=== PATIENT | female | born 1965 | race Two or more races ===

== ENCOUNTER → 2024-07-08 | Outpatient (CLI) | payer MEDICAID, SELFPAY ==
--- NOTE | 2024-07-08 13:33 | XR_ITS ---
Examination: PA lateral chest 2 views Technique: Upright PA lateral chest 2 views Exam date and time: July 08, 2024 1344 hrs. Indications: Coughing congestion this week. Findings: Subsegmental atelectasis left base Right internal jugular Port-A-Cath tip satisfactory position Left axillary surgical clips No lobar pneumonia or pulmonary edema Impression: No lobar pneumonia or pulmonary edema
== END | disposition home or self-care (01) ==
PROVIDERS: PCP Family Medicine; Referring Provider Internal Medicine Hematology & Oncology; Visit Provider Internal Medicine Hematology & Oncology
DX: R05.9 Cough, unspecified (principal); C50.112 Malignant neoplasm of central portion of left female breast
CPT/HCPCS: 71046

== ENCOUNTER 2024-07-15 08:55 | Outpatient (RCR) | payer MEDICAID, SELFPAY ==
--- NOTE | 2024-06-24 06:16 | CTCFLWUP_ITS ---
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 Axillary LN biopsy negative Sclerotic lesion involving the right lateral facet of C2 vertebral body. Right ear pain of unclear etiology Type 2 diabetes REASON FOR TODAY?S VISIT: This is office follow-up visit. Ms. Esteves is here at [facility] ([facility]. She had lumpectomy and sentinel lymph node biopsy done on 02/21/2024. She was found to have stage IIa triple negative invasive ductal carcinoma as documented below. She was to start chemotherapy but she unfortunately complained of right axillary lymph node swelling which wa s biopsied and is negative now. She has recovered very well from the surgery. Denies any pain in th e left breast or left axilla. Denies any cough, chest pain, abdominal pain or leg cramps. Ambulatin g well without any help. Has good appetite and good energy levels. HISTORY OF PRESENT ILLNESS: Marlyn Esteves is a 58-year-old SPA speaking female with histor y of diabetes has been having neck pain with radiation to the right upper extremity for last 1 year. She has the following work-up done so far. Ms. Esteves is referred to medical oncology to rule out malignancy. 09/28/2022: CT scan of the spine cervical spine without contrast 11/28/2022: MRI of the cervical spine with and without contrast 01/18/2023: Bilateral screening mammogram done at [facility] 03/22/2023:Bone scan 05/30/2023: CT scan of the chest abdomen and pelvis with IV contrast 07/03/2023: Bilateral screening mammograms 08/16/2023: PET/CT scan 08/22/2023: Bilateral breast ultrasound 10/16/2023: Stereotactic guided vacuum-assisted left breast biopsy with clip placement? 11/06/2023: [employer] Hereditary cancer panel negative for BRCA 1and2 mutations 11/13/2023: Echocardiogram?LVEF 60-65%. 02/21/2024: Ms. Esteves had left breast lumpectomy and sentinel lymph node biopsy PAST MEDICAL HISTORY: Diabetes Hyperlidiemia PAST SURGICAL HISTORY: Tubal?ligation-1995 ?- MEDICATIONS: 1. cyclobenzaprine - 10 mg 1 tab Three times a day 2. gabapentin - 100 mg 1 Capsule Three times a day 3. meloxicam - 15 mg 1 tab Daily 4. simvastatin - 20 mg 1 tab Daily 5. traMADol - 50 mg 1 tab Twice a Day?Palabra Meds? Medications Last Reconciled by Etelvina Braxton MA on 03/26/2024 ALLERGIES: No Known Drug Allergies REVIEW OF SYSTEMS:?Clone ROS? Neurological: No headache, seizures or blurring of vision. Gastrointestinal: No nausea, vomiting, diarrhea or constipation. Cardiovascular: No palpitations or angina pains. Respiratory: No cough, chest pain or shortness of breath. PHYSICAL EXAMINATION:?ClonePE? VITAL SIGNS: EYE: Conjunctivae is pink. MOUTH: Oral cavity is dry. No tenderness present in the cervical spine. Biopsy site on the left breast looks good. No signs of infection. CHEST: Clear to auscultation. No wheezes or rales audible. CARDIAC: Rhythm regular, no murmurs or gallops present. ABDOMEN: Soft. No hepatomegaly. No splenomegaly. EXTREMITIES: No pedal edema or cyanosis. ASSESSMENT: 1. Stage IIa (pT2, snN 0, M0)moderately differentiated invasive ductal carcinoma of the left breast w ith lymphovascular invasion, Ki-67 75%. S/p lumpectomy and sentinel lymph node biopsy on 02/21/2020 2. Left axillary lymph node biopsy is negative so the patient remains stage II and not a candidate fo r keynote chemotherapy combination 3. clinical stage Ia (cT1c, N0, M0) triple negative invasive ductal carcinoma, moderately differentia [place] of left breast, status post left breast stereotactic core biopsy (10/16/2023) 4. BRCA 1and2 negative 5. PET/CT scan negative for metastatic disease (08/16/2019. 6. Sclerotic lesion involving the right lateral facet of C2 vertebral body. 7. Type 2 diabetesDense sclerotic lesion involving the right lateral facet of the C2 vertebral body w hich was causing neck pain as well as radiation to the right upper extremity. Rule out metastatic di sease. PLAN: 1. In view of the stage IIa nature of her triple negative breast cancer I have recommended adjuvant c hemotherapy. Patient is agreeable to have the chemotherapy to decrease the chance of recurrence. 2. I will start her on dose dense AC for 4 cycles followed by weekly paclitaxel for 12 weeks. 3. Chemo-Port already completed 4. Echocardiogram reviewed. 5. Patient will start chemotherapy tomorrow Electronically Signed by Dr. Samaniego CC: PCP: Boogie Douglas Referring: Boogie Douglas This document was completed utilizing speech recognition software. Grammatical errors, random word in sertions, pronoun errors, and incomplete sentences are an occasional consequence of this system due t o software limitations, ambient noise, and hardware issues. Any formal questions or concerns about e content, text or information contained within the body of this dictation should be directly address ed to the provider for clarification.
[2024-06-24 08:39] LABS: Basophils % (Auto) 0 % (0-2.5); Eosinophils # (Auto) 0.1 Thou/mm3 (0.0-0.5); Eosinophils % (Auto) 2 % (0-10); Hematocrit 35.3 % (36.0-46.0); Hemoglobin 11.9 g/dL (12.0-16.0); Immature Granulocytes % (Auto) 0 % (0-0); Immature Granulocytes Auto 0.02 Thou/mm3 (0.00-0.00); Lymphocytes # (Auto) 1.6 Thou/mm3 (1.0-4.8); Lymphocytes % (Auto) 26 % (10-50); Mean Corpuscular HGB Conc 33.7 g/dl (31.0-37.0); Mean Corpuscular Hemoglobin 29.8 pg (25.0-35.0); Mean Corpuscular Volume 89 fL (80-100); Monocytes # (Auto) 0.4 Thou/mm3 (0.0-0.8); Monocytes % (Auto) 7 % (0-12); Neutrophils # (Auto) 3.9 Thou/mm3 (1.8-7.7); Neutrophils % (Auto) 65 % (37-80); Nucleated Red Blood Cell % 0 /100 WBC (0); Platelet Count 206 Thou/mm3 (140-440); RDW Standard Deviation 42.7 fL (36.4-46.3); Red Blood Count 3.99 Miln/mm3 (4.00-5.20); White Blood Count 6.1 Thou/mm3 (3.6-11.0)
[2024-06-24 08:47] LABS: Alanine Aminotransferase 24 U/L (10-49); Albumin, Serum 4.5 gm/dL (3.5-5.0); Albumin/Globulin Ratio 1.7 (1.2-2.2); Alkaline Phosphatase 110 U/L (46-116); Anion Gap 9 (7-16); Aspartate Amino Transferase 20 U/L (0-34); BUN/Creatinine Ratio 22 Ratio (12-20); Bilirubin,Total 0.3 mg/dL (0.3-1.2); Blood Urea Nitrogen 11 mg/dL (9-23); Calcium 9.6 mg/dL (8.3-10.6); Calcium (Corrected) 9.6 mg/dL (8.5-10.1); Carbon Dioxide 25.6 mMol/L (20.0-31.0); Chloride 107 mMol/L (98-107); Creatinine (Component) 0.5 mg/dL (0.6-1.3); Globulin 2.7 gm/dL (2.3-3.5); Glucose 136 mg/dL (74-106); Osmolality,Calculated 284 (275-295); Potassium 3.6 mMol/L (3.4-5.1); Sodium 142 mMol/L (136-145); Total Protein 7.2 gm/dL (5.7-8.2); eGFR > 60 See Note
[2024-07-11 11:22] LABS: Basophils # (Auto) 0.1 Thou/mm3 (0.0-0.2); Basophils % (Auto) 1 % (0-2.5); Eosinophils # (Auto) 0.1 Thou/mm3 (0.0-0.5); Eosinophils % (Auto) 1 % (0-10); Hematocrit 32.9 % (36.0-46.0); Hemoglobin 11.1 g/dL (12.0-16.0); Immature Granulocytes % (Auto) 7 % (0-0); Immature Granulocytes Auto 0.63 Thou/mm3 (0.00-0.00); Lymphocytes # (Auto) 1.6 Thou/mm3 (1.0-4.8); Lymphocytes % (Auto) 17 % (10-50); Mean Corpuscular HGB Conc 33.7 g/dl (31.0-37.0); Mean Corpuscular Hemoglobin 30.2 pg (25.0-35.0); Mean Corpuscular Volume 90 fL (80-100); Monocytes % (Auto) 10 % (0-12); Neutrophils # (Auto) 6.3 Thou/mm3 (1.8-7.7); Neutrophils % (Auto) 66 % (37-80); Nucleated Red Blood Cell % 0 /100 WBC (0); Platelet Count 312 Thou/mm3 (140-440); RDW Standard Deviation 43.5 fL (36.4-46.3); Red Blood Count 3.67 Miln/mm3 (4.00-5.20); White Blood Count 9.7 Thou/mm3 (3.6-11.0)
[2024-07-11 11:47] LABS: Alanine Aminotransferase 22 U/L (10-49); Albumin, Serum 4.8 gm/dL (3.5-5.0); Albumin/Globulin Ratio 1.9 (1.2-2.2); Alkaline Phosphatase 112 U/L (46-116); Anion Gap 9 (7-16); Aspartate Amino Transferase 19 U/L (0-34); BUN/Creatinine Ratio 13 Ratio (12-20); Bilirubin,Total 0.2 mg/dL (0.3-1.2); Blood Urea Nitrogen 8 mg/dL (9-23); Calcium 9.5 mg/dL (8.3-10.6); Calcium (Corrected) 9.5 mg/dL (8.5-10.1); Carbon Dioxide 25.8 mMol/L (20.0-31.0); Chloride 107 mMol/L (98-107); Creatinine (Component) 0.6 mg/dL (0.6-1.3); Globulin 2.5 gm/dL (2.3-3.5); Glucose 105 mg/dL (74-106); Osmolality,Calculated 281 (275-295); Potassium 3.6 mMol/L (3.4-5.1); Sodium 142 mMol/L (136-145); Total Protein 7.3 gm/dL (5.7-8.2); eGFR > 60 See Note
[2024-07-11 17:15] LABS: Band Neutrophils (Manual) 5 % (0-6); Lymphocytes (Manual) 25 % (20-44); Monocytes (Manual) 5 % (2-9); Neutrophils (Manual) 65 % (50-70)
--- NOTE | 2024-07-13 00:37 | CTCFLWUP_ITS ---
Patient: MARLYN ESTEVES : 1965 Page 6 of 8 FOLLOW UP NOTE DATE OF SERVICE: 07/08/2024 NAME: MARLYN ESTEVES ACCOUNT: [id number] : 1965 AGE: 58 INTERVAL HISTORY: Patient is complaining of bilateral ear stuffiness. She says she have hearing aids which are not wor ember. She also had URI and also making her ear feel more stuffy and her hearing has decreased ONCOLOGY HISTORY: DIAGNOSIS: Malignant neoplasm of central portion of left female breast [ICD10] C50.112 DATE OF DIAGNOSIS: 10/16/2023 triple negative breast cancer STAGE/TNM: Stage IIa left breast triple negative breast S/p lumpectomy TREATMENT HISTORY: Care?Plan Start?Date Cycle Day Intent AC?4?cy?DD?Taxol?wkly?12?wks 03/26/2024 1 7 Curative?(adjuvant) AC?4?cy?DD?Taxol?wkly?12?wks 04/02/2024 2 7 Curative?(adjuvant) HISTORY OF PRESENT ILLNESS: Marlyn Esteves is a 58-year-old S[place] speaking female with history of diabetes has been havin g neck pain with radiation to the right upper extremity for last 1 year. She has the following work- up done so far. Ms. Esteves is referred to medical oncology to rule out malignancy. 09/28/2022: CT scan of the spine cervical spine without contrast 11/28/2022: MRI of the cervical spine with and without contrast 01/18/2023: Bilateral screening mammogram done at [facility] 03/22/2023:Bone scan 05/30/2023: CT scan of the chest abdomen and pelvis with IV contrast 07/03/2023: Bilateral screening mammograms 08/16/2023: PET/CT scan 08/22/2023: Bilateral breast ultrasound 10/16/2023: Stereotactic guided vacuum-assisted left breast biopsy with clip placement? 11/06/2023: [employer] Hereditary cancer panel negative for BRCA 1and2 mutations 11/13/2023: Echocardiogram?LVEF 60-65%. 02/21/2024: Ms. Esteves had left breast lumpectomy and sentinel lymph node biopsy OTHER MEDICAL HISTORY/CONDITIONS: Diabetes Hyperlidiemia Tubal?ligation-1995 ?- FAMILY HISTORY: Patient?denies?family?cancer?history. SOCIAL HISTORY: Occupational?History:?Unemployed?- Education?Level:?Completed something less than 8th grade Marital?Status:? Tobacco?Use:?Denies ETOH?Use:?Denies Drug?Note:?Denues Social?History?Note:?Lives?alone [employer] HISTORY: Menarche?-?Age:?10 Menopause:?Age?51 :?4 Live?Births:?5 Age?1st?:?16 Gynecological?Note:?!?set?of?twins MEDICATIONS: 1. cyclobenzaprine - 10 mg 1 tab Three times a day 2. gabapentin - 100 mg 1 Capsule Three times a day 3. meloxicam - 15 mg 1 tab Daily 4. simvastatin - 20 mg 1 tab Daily 5. traMADol - 50 mg 1 tab Twice a Day 6. Zithromax Z-Sarath - 250 mg 1 - 2 tab 2 tabs day one then one daily over 5 days Medications Last Reconciled by Etelvina Braxton MA on 07/08/2024 ALLERGIES: No Known Drug Allergies REVIEW OF SYSTEMS: A complete 14-point review of systems was performed and is negative except as noted in interval histo ry. PHYSICAL EXAMINATION: VITAL SIGNS: Temperature?98.2, B/P?135/90, Oxygen?Saturation?97% Weight?123?lbs (Change?since? 4:?-7.6?lbs) PAIN: 0 - No pain ECOG Performance Status: 0 - Asymptomatic and fully active EYE: Conjunctivae is white MOUTH: Oral cavity is moist no tenderness present in the cervical spine. Biopsy site on the left breast looks good. No signs of infection. CHEST: Clear to auscultation. No wheezes or rales audible. CARDIAC: Rhythm regular, no murmurs or gallops present. ABDOMEN: Soft. No hepatomegaly. No splenomegaly. EXTREMITIES: No pedal edema or cyanosis. LABORATORY DATA: I have personally reviewed and interpreted each of the patient?s relevant lab tests, abnormal finding s are below: Date 07/11/24 ??GLUCOSE,RANDOM?(mg/dL) 105 ??BLOOD?UREA?NITROGEN?(mg/dL) 8?L ??CREATININE?(mg/dL) 0.60 ??SODIUM?(mmol/L) 142 ??POTASSIUM?(mmol/L) 3.6 ??CHLORIDE?(mmol/L) 107 ??CrCl?(CandG)?(ml/min) 89.93 ??AST/SGOT?(Unit/L) 19 ??ALT/SGPT?(Unit/L) 22 ??ALKALINE?PHOSPHATASE?(Unit/L) 112 ??BILIRUBIN,?TOTAL?(mg/dL) 0.2?L ??PROTEIN?TOTAL?(gm/dl) 7.3 ??ALBUMIN,?SERUM?(gm/dl) 4.8 ??GLOBULIN?(gm/dl) 2.5 ??ALBUMIN/GLOBULIN?RATIO 1.9 ??CALCIUM,?SERUM?(mg/dL) 9.5 ??CALCIUM?SERUM?(CORRECTED)?(mg/dL) 9.5 ASSESSMENT/PLAN: 1. Stage IIa (pT2, snN 0, M0)moderately differentiated invasive ductal carcinoma of the left breast w ith lymphovascular invasion, Ki-67 75%. S/p lumpectomy and sentinel lymph node biopsy on 02/21/2020 Patient was initially diagnosed in October 2023 but got her surgery done in 03/04/2024 and did not recei ve neoadjuvant chemotherapy Patient was seen by me in April 2020 for and at that time patient complained of palpable left axill shabnam lymph node. Patient was sent for left axillary lymph node biopsy. Left axillary lymph node biop sy is negative so Ms. Esteves remains stage II and chemotherapy was started. Initially,clinica l stage Ia (cT1c, N0, M0) triple negative invasive ductal carcinoma, moderately differentiated of lef t breast, status post left breast stereotactic core biopsy (10/16/2023) BRCA 1and2 negative PET/CT scan negative for metastatic disease (08/16/2023. Started on chemotherapy with AC followed by paclitaxel Tolerating chemotherapy but patient have frequent delays Continue chemotherapy Will get x-rays just to make sure patient do not have any pneumonia and send to audiometry for hearin g test Will try to avoid any delays until absolutely necessary 2. sclerotic lesion involving the right lateral facet of C2 vertebral body. This is not biopsied. 3. Type 2 diabetes 4. Dense sclerotic lesion involving the right lateral facet of the C2 vertebral body and follows with orthopedic surgeon in [facility] CMP hearing test RETURN TO CLINIC: 4 weeks BILLING AND COMPLIANCE: I reviewed external records from providers outside my specialty as summarized above. I spent a total of 50 minutes on this patient?s care on the day of their visit excluding time spent related to any bi lled procedures. This time includes time spent with the patient as well as time spent documenting in the medical record, reviewing patients records and tests, obtaining history, placing orders, communi cating with other healthcare professionals, counseling the patient, family or caregiver, and/or care coordination for the diagnoses above. Electronically Signed by: Danny Jones MD T: 12:35 AM CC: PCP: Boogie Douglas Referring: Boogie Douglas This document was completed utilizing speech recognition software. Grammatical errors, random word in sertions, pronoun errors, and incomplete sentences are an occasional consequence of this system due t o software limitations, ambient noise, and hardware issues. Any formal questions or concerns about th e content, text or information contained within the body of this dictation should be directly address ed to the provider for clarification.
== END 2024-07-15 23:59 | disposition home or self-care (01) ==
LOC: SCTC 08:55
PROVIDERS: PCP Family Medicine; Referring Provider Family Medicine; Visit Provider Internal Medicine Hematology & Oncology
DX: Z51.11 Encounter for antineoplastic chemotherapy (principal); C50.112 Malignant neoplasm of central portion of left female breast; Z17.421 Hormone receptor negative with human epidermal growth factor receptor 2 negative status; Z90.12 Acquired absence of left breast and nipple; M89.8X8 Other specified disorders of bone, other site; E11.9 Type 2 diabetes mellitus without complications
CPT/HCPCS: 36591; 80053; 85025; 96367; 96372; 96411; 96413; 99213; 99424; 99425; A4216; J1100; J1453; J1642; J2405; J2506; J3490; J7040; J9000; J9075; Q3014; G0463

== ENCOUNTER → 2024-07-15 | Outpatient (CLI) | payer MEDICAID, SELFPAY ==
--- NOTE | 2024-07-15 13:30 | ECHO_ITS ---
Transthoracic Echo Report Ht (in): 58 Wt (lb): 125 Exam Location: Echo Lab Status: Preadmit Independent Distributor: Monserrat Gee Indications: Procedure Performed: BP: / HR: Rhythm: Sinus Technical Quality: Fair MEASUREMENTS (Male / Female) Normal Values 2D ECHO LV Diastolic Diameter PLAX 4.1 cm 4.2 - 5.9 / 3.9 - 5.3 cm LV Systolic Diameter PLAX 2.7 cm IVS Diastolic Thickness 0.7 cm 0.6 - 1.0 / 0.6 - 0.9 cm LVPW Diastolic Thickness 0.7 cm 0.6 - 1.0 / 0.6 - 0.9 cm LV Relative Wall Thickness 0.3 LVOT Diameter 1.6 cm LA Volume Index 18.4 cm?/m? 16 - 28 cm?/m? Ascending Aorta Diameter 2.7 cm M-MODE Aortic Root Diameter MM 2.8 cm LA Systolic Diameter MM 3.5 cm LA Ao Ratio MM 1.3 AV Cusp Separation MM 2.0 cm DOPPLER AV Peak Velocity 141.0 cm/s AV Peak Gradient 8.0 mmHg AV Mean Gradient 4.0 mmHg AV Velocity Time Integral 23.3 cm LVOT Peak Velocity 134.0 cm/s LVOT Peak Gradient 7.2 mmHg LVOT Velocity Time Integral 25.5 cm AV Area Cont Eq vti 2.2 cm? AV Area Cont Eq pk 1.9 cm? MV Peak Velocity 135.0 cm/s MV Peak Gradient 7.3 mmHg MV Mean Velocity 74.0 cm/s MV Mean Gradient 3.0 mmHg MV Area PHT 4.3 cm? Mitral E Point Velocity 69.8 cm/s Mitral A Point Velocity 101.0 cm/s Mitral E to A Ratio 0.7 LV E' Lateral Velocity 8.5 cm/s Mitral E to LV E' Lateral Ratio 8.2 LV E' Septal Velocity 9.0 cm/s Mitral E to LV E' Septal Ratio 7.7 TR Peak Velocity 220.0 cm/s TR Peak Gradient 19.4 mmHg FINDINGS Left Ventricle Normal left ventricular size, wall thickness, systolic function with no obvious regional wall motion abnormalities. The ejection fraction is visually estimated at 60-65 %. Right Ventricle The right ventricle is normal in size and systolic function. The estimated right ventricular systoli c pressure, 24mmHg. RAP 5. Left Atrium The left atrium is normal by two-dimensional, color flow and Doppler imaging with no structural abnormalities, no thrombus formation present. Right Atrium The right atrium is normal by two-dimensional imaging, color flow and Doppler imaging with no struct ural abnormalities, no thrombus formation present. Atrial Septum The interatrial septum appears normal with no evidence of a shunt. Aorta The aorta is normal by two-dimensional, color flow and Doppler interrogation. Mitral Valve The mitral valve is normal by two-dimensional, color flow and Doppler interrogation. There is no sig nificant mitral valve regurgitation. Aortic Valve The aortic valve is trileaflet and normal by two-dimensional, color flow and Doppler interrogation. There is no significant aortic valve regurgitation. Tricuspid Valve The tricuspid valve is normal by two-dimensional, color flow and Doppler interrogation. There is tra ce tricuspid valve regurgitation. Pulmonic Valve There is no significant pulmonic valve regurgitation. Vessels The pulmonary artery appears normal. The inferior vena cava pulmonary and hepatic veins appear genna l. Pericardium The pericardium is normal by two-dimensional imaging. There is no significant pericardial effusion. CONCLUSIONS The transthoracic study is normal by two-dimensional, color flow imaging and Doppler interrogation. Normal LV size and function. Estimated EF 60-65% Normal RV size and function Trace TR. Maria R Kaminski (Electronically Signed) Final Date: 15 July 2024 16:02
== END | disposition home or self-care (01) ==
LOC: SDIM 13:22
PROVIDERS: PCP Family Medicine; Referring Provider Internal Medicine Hematology & Oncology; Visit Provider Internal Medicine Hematology & Oncology
DX: I07.1 Rheumatic tricuspid insufficiency (principal)
CPT/HCPCS: 93306

== ENCOUNTER 2024-08-12 13:50 | Outpatient (RCR) | payer MEDICAID, SELFPAY ==
[2024-07-25 10:28] LABS: Basophils # (Auto) 0.1 Thou/mm3 (0.0-0.2); Basophils % (Auto) 1 % (0-2.5); Eosinophils % (Auto) 1 % (0-10); Hematocrit 26.9 % (36.0-46.0); Hemoglobin 9.2 g/dL (12.0-16.0); Immature Granulocytes % (Auto) 9 % (0-0); Immature Granulocytes Auto 0.41 Thou/mm3 (0.00-0.00); Lymphocytes % (Auto) 22 % (10-50); Mean Corpuscular HGB Conc 34.2 g/dl (31.0-37.0); Mean Corpuscular Hemoglobin 29.6 pg (25.0-35.0); Mean Corpuscular Volume 87 fL (80-100); Monocytes # (Auto) 0.6 Thou/mm3 (0.0-0.8); Monocytes % (Auto) 14 % (0-12); Neutrophils # (Auto) 2.4 Thou/mm3 (1.8-7.7); Neutrophils % (Auto) 52 % (37-80); Nucleated Red Blood Cell % 0 /100 WBC (0); Platelet Count 123 Thou/mm3 (140-440); RDW Standard Deviation 42.3 fL (36.4-46.3); Red Blood Count 3.11 Miln/mm3 (4.00-5.20); White Blood Count 4.5 Thou/mm3 (3.6-11.0)
[2024-07-25 10:54] LABS: Alanine Aminotransferase 22 U/L (10-49); Albumin, Serum 4.5 gm/dL (3.5-5.0); Albumin/Globulin Ratio 1.9 (1.2-2.2); Alkaline Phosphatase 89 U/L (46-116); Anion Gap 10 (7-16); Aspartate Amino Transferase 23 U/L (0-34); BUN/Creatinine Ratio 12 Ratio (12-20); Bilirubin,Total 0.2 mg/dL (0.3-1.2); Blood Urea Nitrogen 6 mg/dL (9-23); Calcium 9.2 mg/dL (8.3-10.6); Calcium (Corrected) 9.2 mg/dL (8.5-10.1); Carbon Dioxide 26.8 mMol/L (20.0-31.0); Chloride 102 mMol/L (98-107); Creatinine (Component) 0.5 mg/dL (0.6-1.3); Globulin 2.4 gm/dL (2.3-3.5); Glucose 126 mg/dL (74-106); Osmolality,Calculated 277 (275-295); Potassium 3.5 mMol/L (3.4-5.1); Sodium 139 mMol/L (136-145); Total Protein 6.9 gm/dL (5.7-8.2); eGFR > 60 See Note
[2024-07-25 11:03] LABS: CA 15-3 17.4 U/mL (<32.4)
[2024-07-25 15:27] LABS: Path Review Blood Smear Sent to Pathologist
[2024-08-08 11:56] LABS: Basophils % (Auto) 0 % (0-2.5); Eosinophils % (Auto) 0 % (0-10); Hematocrit 27.8 % (36.0-46.0); Hemoglobin 9.2 g/dL (12.0-16.0); Immature Granulocytes % (Auto) 21 % (0-0); Immature Granulocytes Auto 1.71 Thou/mm3 (0.00-0.00); Lymphocytes # (Auto) 0.9 Thou/mm3 (1.0-4.8); Lymphocytes % (Auto) 12 % (10-50); Mean Corpuscular HGB Conc 33.1 g/dl (31.0-37.0); Mean Corpuscular Hemoglobin 30.4 pg (25.0-35.0); Mean Corpuscular Volume 92 fL (80-100); Monocytes % (Auto) 12 % (0-12); Neutrophils # (Auto) 4.4 Thou/mm3 (1.8-7.7); Neutrophils % (Auto) 54 % (37-80); Nucleated Red Blood Cell # 0.08 Thou/mm3 (0.00-0.00); Nucleated Red Blood Cell % 1 /100 WBC (0); Platelet Count 148 Thou/mm3 (140-440); RDW Standard Deviation 50.2 fL (36.4-46.3); Red Blood Count 3.03 Miln/mm3 (4.00-5.20); White Blood Count 8.1 Thou/mm3 (3.6-11.0)
[2024-08-08 12:14] LABS: Alanine Aminotransferase 14 U/L (10-49); Albumin, Serum 4.6 gm/dL (3.4-4.8); Albumin/Globulin Ratio 2.2 (1.2-2.2); Alkaline Phosphatase 106 U/L (46-116); Anion Gap 11 (7-16); Aspartate Amino Transferase 15 U/L (0-34); BUN/Creatinine Ratio 14 Ratio (12-20); Bilirubin,Total 0.2 mg/dL (0.3-1.2); Blood Urea Nitrogen 7 mg/dL (9-23); Calcium 9.1 mg/dL (8.3-10.6); Calcium (Corrected) 9.1 mg/dL (8.5-10.1); Carbon Dioxide 26.2 mMol/L (20.0-31.0); Chloride 106 mMol/L (98-107); Creatinine (Component) 0.5 mg/dL (0.6-1.3); Globulin 2.1 gm/dL (2.3-3.5); Glucose 142 mg/dL (74-106); Osmolality,Calculated 284 (275-295); Potassium 3.3 mMol/L (3.4-5.1); Sodium 143 mMol/L (136-145); Total Protein 6.7 gm/dL (5.7-8.2); eGFR > 60 See Note
[2024-08-08 12:29] LABS: CA 15-3 20.8 U/mL (<32.4)
[2024-08-08 14:39] LABS: Path Review Blood Smear Sent to Pathologist
== END 2024-08-15 23:59 | disposition home or self-care (01) ==
LOC: SCTC 13:50
PROVIDERS: Internal Medicine Hematology & Oncology; PCP Family Medicine; Referring Provider Family Medicine; Visit Provider Radiology Therapeutic Radiology
DX: Z51.11 Encounter for antineoplastic chemotherapy (principal); C50.112 Malignant neoplasm of central portion of left female breast; Z17.421 Hormone receptor negative with human epidermal growth factor receptor 2 negative status; E11.9 Type 2 diabetes mellitus without complications; Z90.12 Acquired absence of left breast and nipple; M89.9 Disorder of bone, unspecified
CPT/HCPCS: 36591; 80053; 85025; 86300; 96367; 96372; 96411; 96413; 99211; A4216; J1100; J1453; J1642; J2405; J2506; J7040; J7050; J9000; J9075; G0463

== ENCOUNTER 2024-09-12 12:33 | Outpatient (RCR) | payer MEDICAID, SELFPAY ==
[2024-08-18 10:56] LABS: Basophils % (Auto) 1 % (0-2.5); Eosinophils % (Auto) 0 % (0-10); Hematocrit 25.6 % (36.0-46.0); Immature Granulocytes % (Auto) 2 % (0-0); Immature Granulocytes Auto 0.05 Thou/mm3 (0.00-0.00); Lymphocytes # (Auto) 0.4 Thou/mm3 (1.0-4.8); Lymphocytes % (Auto) 13 % (10-50); Mean Corpuscular HGB Conc 33.2 g/dl (31.0-37.0); Mean Corpuscular Hemoglobin 30.8 pg (25.0-35.0); Mean Corpuscular Volume 93 fL (80-100); Monocytes # (Auto) 0.1 Thou/mm3 (0.0-0.8); Monocytes % (Auto) 5 % (0-12); Neutrophils # (Auto) 2.3 Thou/mm3 (1.8-7.7); Neutrophils % (Auto) 80 % (37-80); Nucleated Red Blood Cell % 0 /100 WBC (0); Platelet Count 148 Thou/mm3 (140-440); RDW Standard Deviation 58.9 fL (36.4-46.3); Red Blood Count 2.76 Miln/mm3 (4.00-5.20)
[2024-08-18 10:59] LABS: Hemoglobin 8.5 g/dL (12.0-16.0); White Blood Count 2.9 Thou/mm3 (3.6-11.0)
[2024-08-18 11:03] LABS: Path Review Blood Smear Sent to Pathologist
[2024-08-22 10:56] LABS: Basophils % (Auto) 0 % (0-2.5); Eosinophils % (Auto) 0 % (0-10); Hematocrit 27.7 % (36.0-46.0); Hemoglobin 9.2 g/dL (12.0-16.0); Immature Granulocytes % (Auto) 12 % (0-0); Lymphocytes # (Auto) 0.9 Thou/mm3 (1.0-4.8); Lymphocytes % (Auto) 12 % (10-50); Mean Corpuscular HGB Conc 33.2 g/dl (31.0-37.0); Mean Corpuscular Hemoglobin 31.4 pg (25.0-35.0); Mean Corpuscular Volume 95 fL (80-100); Monocytes % (Auto) 14 % (0-12); Neutrophils # (Auto) 4.6 Thou/mm3 (1.8-7.7); Neutrophils % (Auto) 62 % (37-80); Nucleated Red Blood Cell # 0.06 Thou/mm3 (0.00-0.00); Nucleated Red Blood Cell % 1 /100 WBC (0); Platelet Count 137 Thou/mm3 (140-440); RDW Standard Deviation 60.8 fL (36.4-46.3); Red Blood Count 2.93 Miln/mm3 (4.00-5.20); White Blood Count 7.4 Thou/mm3 (3.6-11.0)
[2024-08-22 11:18] LABS: Alanine Aminotransferase 16 U/L (10-49); Albumin, Serum 4.5 gm/dL (3.4-4.8); Alkaline Phosphatase 110 U/L (46-116); Anion Gap 10 (7-16); Aspartate Amino Transferase 11 U/L (0-34); BUN/Creatinine Ratio 12 Ratio (12-20); Bilirubin,Total 0.2 mg/dL (0.3-1.2); Blood Urea Nitrogen 7 mg/dL (9-23); Calcium 9.3 mg/dL (8.3-10.6); Calcium (Corrected) 9.3 mg/dL (8.5-10.1); Carbon Dioxide 25.3 mMol/L (20.0-31.0); Chloride 106 mMol/L (98-107); Creatinine (Component) 0.6 mg/dL (0.6-1.3); Globulin 2.2 gm/dL (2.3-3.5); Glucose 134 mg/dL (74-106); Osmolality,Calculated 281 (275-295); Potassium 3.4 mMol/L (3.4-5.1); Sodium 141 mMol/L (136-145); Total Protein 6.7 gm/dL (5.7-8.2); eGFR > 60 See Note
[2024-08-22 11:25] LABS: Path Review Blood Smear Sent to Pathologist
[2024-08-22 11:34] LABS: CA 15-3 18.5 U/mL (<32.4)
[2024-09-02 09:11] LABS: Basophils % (Auto) 1 % (0-2.5); Eosinophils % (Auto) 0 % (0-10); Hematocrit 25.6 % (36.0-46.0); Immature Granulocytes % (Auto) 2 % (0-0); Immature Granulocytes Auto 0.07 Thou/mm3 (0.00-0.00); Lymphocytes # (Auto) 0.7 Thou/mm3 (1.0-4.8); Lymphocytes % (Auto) 15 % (10-50); Mean Corpuscular Hemoglobin 32.3 pg (25.0-35.0); Mean Corpuscular Volume 95 fL (80-100); Monocytes # (Auto) 0.5 Thou/mm3 (0.0-0.8); Monocytes % (Auto) 12 % (0-12); Neutrophils # (Auto) 3.1 Thou/mm3 (1.8-7.7); Neutrophils % (Auto) 71 % (37-80); Nucleated Red Blood Cell # 0.02 Thou/mm3 (0.00-0.00); Nucleated Red Blood Cell % 0 /100 WBC (0); Platelet Count 318 Thou/mm3 (140-440); RDW Standard Deviation 67.7 fL (36.4-46.3); Red Blood Count 2.69 Miln/mm3 (4.00-5.20); White Blood Count 4.5 Thou/mm3 (3.6-11.0)
[2024-09-02 09:13] LABS: Hemoglobin 8.7 g/dL (12.0-16.0)
[2024-09-02 09:28] LABS: Alanine Aminotransferase 19 U/L (10-49); Albumin, Serum 4.1 gm/dL (3.4-4.8); Alkaline Phosphatase 77 U/L (46-116); Anion Gap 10 (7-16); Aspartate Amino Transferase 19 U/L (0-34); BUN/Creatinine Ratio 14 Ratio (12-20); Bilirubin,Total 0.2 mg/dL (0.3-1.2); Blood Urea Nitrogen 7 mg/dL (9-23); Carbon Dioxide 25.9 mMol/L (20.0-31.0); Chloride 107 mMol/L (98-107); Creatinine (Component) 0.5 mg/dL (0.6-1.3); Globulin 2.1 gm/dL (2.3-3.5); Glucose 114 mg/dL (74-106); Osmolality,Calculated 283 (275-295); Potassium 3.6 mMol/L (3.4-5.1); Sodium 143 mMol/L (136-145); Total Protein 6.2 gm/dL (5.7-8.2); eGFR > 60 See Note
[2024-09-09 10:32] LABS: Basophils % (Auto) 1 % (0-2.5); Eosinophils % (Auto) 1 % (0-10); Hematocrit 26.6 % (36.0-46.0); Immature Granulocytes % (Auto) 2 % (0-0); Immature Granulocytes Auto 0.04 Thou/mm3 (0.00-0.00); Lymphocytes # (Auto) 0.6 Thou/mm3 (1.0-4.8); Lymphocytes % (Auto) 23 % (10-50); Mean Corpuscular HGB Conc 33.8 g/dl (31.0-37.0); Mean Corpuscular Hemoglobin 31.7 pg (25.0-35.0); Mean Corpuscular Volume 94 fL (80-100); Monocytes # (Auto) 0.3 Thou/mm3 (0.0-0.8); Monocytes % (Auto) 11 % (0-12); Neutrophils # (Auto) 1.7 Thou/mm3 (1.8-7.7); Neutrophils % (Auto) 63 % (37-80); Nucleated Red Blood Cell % 0 /100 WBC (0); Platelet Count 231 Thou/mm3 (140-440); RDW Standard Deviation 63.7 fL (36.4-46.3); Red Blood Count 2.84 Miln/mm3 (4.00-5.20)
[2024-09-09 10:52] LABS: Anion Gap 9 (7-16); BUN/Creatinine Ratio 16 Ratio (12-20); Blood Urea Nitrogen 8 mg/dL (9-23); Calcium 9.1 mg/dL (8.3-10.6); Carbon Dioxide 24.8 mMol/L (20.0-31.0); Chloride 108 mMol/L (98-107); Creatinine (Component) 0.5 mg/dL (0.6-1.3); Glucose 125 mg/dL (74-106); Osmolality,Calculated 282 (275-295); Potassium 3.5 mMol/L (3.4-5.1); Sodium 142 mMol/L (136-145); eGFR > 60 See Note
[2024-09-09 11:07] LABS: CA 15-3 16.1 U/mL (<32.4)
[2024-09-09 11:08] LABS: White Blood Count 2.7 Thou/mm3 (3.6-11.0)
[2024-09-09 11:31] LABS: Alanine Aminotransferase 23 U/L (10-49); Albumin, Serum 4.2 gm/dL (3.4-4.8); Alkaline Phosphatase 73 U/L (46-116); Aspartate Amino Transferase 19 U/L (0-34); Bilirubin,Total 0.3 mg/dL (0.3-1.2); Calcium (Corrected) 9.1 mg/dL (8.5-10.1); Globulin 2.1 gm/dL (2.3-3.5); Total Protein 6.3 gm/dL (5.7-8.2)
--- NOTE | 2024-09-15 00:55 | CTCFLWUP_ITS ---
Patient: MARLYN ESTEVES : 1965 Page 6 of 8 FOLLOW UP NOTE DATE OF SERVICE: 09/12/2024 NAME: MARLYN ESTEVES ACCOUNT: [id number] : 1965 AGE: 59 INTERVAL HISTORY: Patient is complaining of new bone pain. Patient also have very severe nausea and headaches. On chemotherapy ONCOLOGY HISTORY: DIAGNOSIS: Malignant neoplasm of central portion of left female breast [ICD10] C50.112 DATE OF DIAGNOSIS: 10/16/2023 triple negative breast cancer STAGE/TNM: Stage IIa left breast triple negative breast S/p lumpectomy TREATMENT HISTORY: Care?Plan Start?Date Cycle Day Intent AC?4?cy?DD?Taxol?wkly?12?wks 03/26/2024 1 7 Curative?(adjuvant) AC?4?cy?DD?Taxol?wkly?12?wks 04/02/2024 2 7 Curative?(adjuvant) HISTORY OF PRESENT ILLNESS: Marlyn Esteves is a 59-year-old S[place] speaking female with history of diabetes has been having neck pain with radiation to the right upper extremity for last 1 year. She has the following work-up done so far. Ms. Esteves is referred to medical oncology to rule out malignancy. 09/28/2022: CT scan of the spine cervical spine without contrast 11/28/2022: MRI of the cervical spine with and without contrast 01/18/2023: Bilateral screening mammogram done at [facility] 03/22/2023:Bone scan 05/30/2023: CT scan of the chest abdomen and pelvis with IV contrast 07/03/2023: Bilateral screening mammograms 08/16/2023: PET/CT scan 08/22/2023: Bilateral breast ultrasound 10/16/2023: Stereotactic guided vacuum-assisted left breast biopsy with clip placement? 11/06/2023: [employer] Hereditary cancer panel negative for BRCA 1and2 mutations 11/13/2023: Echocardiogram?LVEF 60-65%. 02/21/2024: Ms. Esteves had left breast lumpectomy and sentinel lymph node biopsy OTHER MEDICAL HISTORY/CONDITIONS: Diabetes Hyperlidiemia Tubal?ligation-1995 ?- FAMILY HISTORY: Patient?denies?family?cancer?history. SOCIAL HISTORY: Occupational?History:?Unemployed?- Education?Level:?Completed something less than 8th grade Marital?Status:? Tobacco?Use:?Denies ETOH?Use:?Denies Drug?Note:?Denues Social?History?Note:?Lives?alone [employer] HISTORY: Menarche?-?Age:?10 Menopause:?Age?51 :?4 Live?Births:?5 Age?1st?:?16 Gynecological?Note:?!?set?of?twins MEDICATIONS: 1. acetaminophen - 500 mg 1 tab As needed 2. cyclobenzaprine - 10 mg 1 tab Three times a day 3. gabapentin - 100 mg 1 Capsule Three times a day 4. meloxicam - 15 mg 1 tab Daily 5. ondansetron - 8 mg tab As needed 6. potassium chloride - 20 mEq 1 tab Daily 7. prochlorperazine - 5 mg 1 Suppository As needed 8. simvastatin - 20 mg 1 tab Daily 9. traMADol - 50 mg 1 tab Twice a Day 10. Vitamin D3 - 2,000 unit 1 Capsule Daily 11. Zithromax Z-Sarath - 250 mg 1 - 2 tab 2 tabs day one then one daily over 5 days Medications Last Reconciled by Joyce Lozoya MD on 09/12/2024 ALLERGIES: No Known Drug Allergies REVIEW OF SYSTEMS: A complete 14-point review of systems was performed and is negative except as noted in interval history. PHYSICAL EXAMINATION: VITAL SIGNS: Temperature?98.7, B/P?111/69, Oxygen?Saturation?98% Weight?121?lbs (Change?since?09/10/24:?-1.4?lbs) PAIN: 1 - Between no and mild pain EYE: Conjunctivae is white MOUTH: Oral cavity is moist no tenderness present in the cervical spine. Biopsy site on the left breast looks good. No signs of infection. CHEST: Clear to auscultation. No wheezes or rales audible. CARDIAC: Rhythm regular, no murmurs or gallops present. ABDOMEN: Soft. No hepatomegaly. No splenomegaly. EXTREMITIES: No pedal edema or cyanosis. LABORATORY DATA: I have personally reviewed and interpreted each of the patient?s relevant lab tests, abnormal findings are below: Date 09/09/24 ??WHITE?BLOOD?COUNT?(Thou/mm3) 2.7?L ??RED?BLOOD?COUNT?(Miln/mm3) 2.84?L ??HEMOGLOBIN?(gm/dl) 9.0?L ??HEMATOCRIT?(%) 26.6?L ??PLATELET?COUNT?(Thou/mm3) 231 ??NEUTROPHILS?%,?AUTO?(%) 63 ??LYMPH?%,?AUTO?(%) 23 ??NEUTROPHILS,?AUTO?(Thou/mm3) 1.7?L ASSESSMENT/PLAN: 1. Stage IIa (pT2, snN 0, M0)moderately differentiated invasive ductal carcinoma of the left breast with lymphovascular invasion, Ki-67 75%. S/p lumpectomy and sentinel lymph node biopsy on 02/21/2020 Patient was initially diagnosed in October 2023 but got her surgery done in 03/04/2024 and did not receive neoadjuvant chemotherapy Patient was seen by me in April 2020 for and at that time patient complained of palpable left axillary lymph node. Patient was sent for left axillary lymph node biopsy. Left axillary lymph node biopsy is negative so Ms. Esteves remains stage II and chemotherapy was started. Initially,clinical stage Ia (cT1c, N0, M0) triple negative invasive ductal carcinoma, moderately differentiated of left breast, status post left breast stereotactic core biopsy (10/16/2023) BRCA 1and2 negative PET/CT scan negative for metastatic disease (08/16/2023. Started on chemotherapy with AC followed by paclitaxel Tolerating chemotherapy but patient have frequent delays Continue chemotherapy 2. Advised to take nausea medicine regularly 3. sclerotic lesion involving the right lateral facet of C2 vertebral body. This is not biopsied. 4. Type 2 diabetes 5. Dense sclerotic lesion involving the right lateral facet of the C2 vertebral body and follows with orthopedic surgeon in [place] As patient have new symptoms we will do restaging imaging and brain MRI to make sure there is no metastatic disease Will continue chemotherapy Nausea education done MRI brain with and without contrast to evaluate for brain mets CT DNA for residual disease CBC CMP PET CT scan to restage RETURN TO CLINIC: 4 weeks BILLING AND COMPLIANCE: I reviewed external records from providers outside my specialty as summarized above. I spent a total of 50 minutes on this patient?s care on the day of their visit excluding time spent related to any billed procedures. This time includes time spent with the patient as well as time spent documenting in the medical record, reviewing patients records and tests, obtaining history, placing orders, communicating with other healthcare professionals, counseling the patient, family or caregiver, and/or care coordination for the diagnoses above. Electronically Signed by: Danny Jones MD T: 12:52 AM CC: PCP: Boogie Douglas Referring: Boogie Douglas This document was completed utilizing speech recognition software. Grammatical errors, random word insertions, pronoun errors, and incomplete sentences are an occasional consequence of this system due to software limitations, ambient noise, and hardware issues. Any formal questions or concerns about the content, text or information contained within the body of this dictation should be directly addressed to the provider for clarification.
== END 2024-09-12 23:59 | disposition home or self-care (01) ==
LOC: SCTC 12:33
PROVIDERS: PCP Family Medicine; Referring Provider Family Medicine; Visit Provider Internal Medicine Hematology & Oncology
DX: Z51.11 Encounter for antineoplastic chemotherapy (principal); C50.112 Malignant neoplasm of central portion of left female breast; Z17.421 Hormone receptor negative with human epidermal growth factor receptor 2 negative status; E11.9 Type 2 diabetes mellitus without complications; R11.0 Nausea; R51.9 Headache, unspecified; M89.8X9 Other specified disorders of bone, unspecified site
CPT/HCPCS: 36591; 80053; 85025; 86300; 96367; 96375; 96413; 96415; 99211; 99212; A4216; J1100; J1200; J1453; J1642; J2405; J3490; J7040; J7050; J9267; G0463

== ENCOUNTER → 2024-09-23 | Outpatient (CLI) | payer MEDICAID, SELFPAY ==
--- NOTE | 2024-09-23 14:00 | ECHO_ITS ---
Transthoracic Echo Report Ht (in): 56 Wt (lb): 122 Exam Location: Echo Lab Status: Preadmit Forest Resource Specialist: WALT Robertson^^^^ Indications: Procedure Performed: BP: 122 / 77 HR: 102 Technical Quality: Fair MEASUREMENTS (Male / Female) Normal Values 2D ECHO LV Diastolic Diameter PLAX 4.3 cm 4.2 - 5.9 / 3.9 - 5.3 cm LV Systolic Diameter PLAX 2.9 cm IVS Diastolic Thickness 0.6 cm 0.6 - 1.0 / 0.6 - 0.9 cm LVPW Diastolic Thickness 0.7 cm 0.6 - 1.0 / 0.6 - 0.9 cm LV Relative Wall Thickness 0.3 LVOT Diameter 1.3 cm Aortic Root Diameter 2.5 cm LA Systolic Diameter LX 2.5 cm 3.0 - 4.0 / 2.7 - 3.8 cm LV Ejection Fraction MOD BP 63.4 % >= 55 % LV Cardiac Index MOD BP 2762.5 cm?/min?m? LV Ejection Fraction MOD 4C 65.1 % LV Cardiac Index MOD 4C 3497.3 cm?/min?m? LV Ejection Fraction 4C AL 66.3 % LV Cardiac Index 4C AL 3680.3 cm?/min?m? LV Ejection Fraction MOD 2C 61.5 % LV Cardiac Index MOD 2C 1782.7 cm?/min?m? LV Ejection Fraction 2C AL 62.4 % LV Cardiac Index 2C AL 1816.0 cm?/min?m? LA Volume Index 15.7 cm?/m? 16 - 28 cm?/m? Ascending Aorta Diameter 2.4 cm DOPPLER AV Peak Velocity 106.0 cm/s AV Peak Gradient 4.5 mmHg AV Mean Gradient 3.0 mmHg AV Velocity Time Integral 17.0 cm LVOT Peak Velocity 83.5 cm/s LVOT Peak Gradient 2.8 mmHg LVOT Velocity Time Integral 13.2 cm LVOT Cardiac Index 1192.1 cm?/min?m? AV Area Cont Eq vti 1.0 cm? AV Area Cont Eq pk 1.0 cm? MV Area PHT 3.1 cm? Mitral E Point Velocity 42.1 cm/s Mitral A Point Velocity 69.4 cm/s Mitral E to A Ratio 0.6 LV E' Lateral Velocity 5.7 cm/s Mitral E to LV E' Lateral Ratio 7.4 LV E' Septal Velocity 6.2 cm/s Mitral E to LV E' Septal Ratio 6.8 TR Peak Velocity 238.5 cm/s TR Peak Gradient 22.8 mmHg PV Peak Velocity 87.9 cm/s PV Peak Gradient 3.1 mmHg RVOT Peak Velocity 50.2 cm/s FINDINGS Left Ventricle Normal left ventricular size, wall thickness, systolic function with no obvious regional wall motion abnormalities. There is grade I diastolic dysfunction of the left ventricle (impaired relaxation pattern). The left ventricular ejection fraction is normal, estimated at 55-60%. Right Ventricle The right ventricle is normal in size and systolic function. The estimated right ventricular systolic pressure, 23 mmHg. Left Atrium The left atrium is normal by two-dimensional, color flow and Doppler imaging with no structural abnormalities, no thrombus formation present. Right Atrium The right atrium is normal by two-dimensional imaging, color flow and Doppler imaging with no structural abnormalities, no thrombus formation present. Atrial Septum The interatrial septum appears normal with no evidence of a shunt. Aorta The aorta is normal by two-dimensional, color flow and Doppler interrogation. Mitral Valve Trace to mild mitral regurgitation. Mild mitral annular calcification. Aortic Valve The aortic valve is trileaflet and normal by two-dimensional, color flow and Doppler interrogation. There is no significant aortic valve regurgitation. Tricuspid Valve There is mild tricuspid valve regurgitation. Pulmonic Valve The pulmonic valve is not well visualized. There is no significant pulmonic valve regurgitation. Vessels The pulmonary artery appears normal. The inferior vena cava pulmonary and hepatic veins appear normal. Pericardium The pericardium is normal by two-dimensional imaging. There is no significant pericardial effusion. CONCLUSIONS Indication: History of malignancy Normal LV size and function with an EF of 55 to 60%. Indeterminate diastolic function. Normal RV size and function. Normal RVSP at 23 mmHg. Mild TR Trace MR. No evidence of any pericardial effusion. Paul Pollard (Electronically Signed) Final Date: 24 September 2024 00:34
== END | disposition home or self-care (01) ==
LOC: SDIM 13:50
PROVIDERS: PCP Family Medicine; Referring Provider Internal Medicine Hematology & Oncology; Visit Provider Internal Medicine Hematology & Oncology
DX: I08.1 Rheumatic disorders of both mitral and tricuspid valves (principal)
CPT/HCPCS: 93306

== ENCOUNTER 2024-10-10 09:59 | Outpatient (RCR) | payer MEDICAID, SELFPAY ==
[2024-09-17 13:54] LABS: Basophils % (Auto) 0 % (0-2.5); Eosinophils # (Auto) 0.1 Thou/mm3 (0.0-0.5); Eosinophils % (Auto) 2 % (0-10); Hematocrit 29.5 % (36.0-46.0); Hemoglobin 10.1 g/dL (12.0-16.0); Immature Granulocytes % (Auto) 1 % (0-0); Immature Granulocytes Auto 0.03 Thou/mm3 (0.00-0.00); Lymphocytes # (Auto) 0.7 Thou/mm3 (1.0-4.8); Lymphocytes % (Auto) 16 % (10-50); Mean Corpuscular HGB Conc 34.2 g/dl (31.0-37.0); Mean Corpuscular Hemoglobin 32.3 pg (25.0-35.0); Mean Corpuscular Volume 94 fL (80-100); Monocytes # (Auto) 0.4 Thou/mm3 (0.0-0.8); Monocytes % (Auto) 8 % (0-12); Neutrophils # (Auto) 3.4 Thou/mm3 (1.8-7.7); Neutrophils % (Auto) 73 % (37-80); Nucleated Red Blood Cell % 0 /100 WBC (0); Platelet Count 231 Thou/mm3 (140-440); RDW Standard Deviation 62.8 fL (36.4-46.3); Red Blood Count 3.13 Miln/mm3 (4.00-5.20); White Blood Count 4.6 Thou/mm3 (3.6-11.0)
[2024-09-17 14:15] LABS: Alanine Aminotransferase 31 U/L (10-49); Albumin, Serum 4.8 gm/dL (3.4-4.8); Albumin/Globulin Ratio 2.3 (1.2-2.2); Alkaline Phosphatase 89 U/L (46-116); Anion Gap 9 (7-16); Aspartate Amino Transferase 26 U/L (0-34); BUN/Creatinine Ratio 12 Ratio (12-20); Bilirubin,Total 0.3 mg/dL (0.3-1.2); Blood Urea Nitrogen 6 mg/dL (9-23); Calcium 9.4 mg/dL (8.3-10.6); Calcium (Corrected) 9.4 mg/dL (8.5-10.1); Chloride 110 mMol/L (98-107); Creatinine (Component) 0.5 mg/dL (0.6-1.3); Globulin 2.1 gm/dL (2.3-3.5); Glucose 105 mg/dL (74-106); Osmolality,Calculated 286 (275-295); Potassium 3.9 mMol/L (3.4-5.1); Sodium 145 mMol/L (136-145); Total Protein 6.9 gm/dL (5.7-8.2); eGFR > 60 See Note
[2024-09-24 11:51] LABS: Basophils % (Auto) 1 % (0-2.5); Eosinophils # (Auto) 0.1 Thou/mm3 (0.0-0.5); Eosinophils % (Auto) 2 % (0-10); Hematocrit 28.5 % (36.0-46.0); Hemoglobin 9.5 g/dL (12.0-16.0); Immature Granulocytes % (Auto) 0 % (0-0); Immature Granulocytes Auto 0.01 Thou/mm3 (0.00-0.00); Lymphocytes # (Auto) 0.5 Thou/mm3 (1.0-4.8); Lymphocytes % (Auto) 19 % (10-50); Mean Corpuscular HGB Conc 33.3 g/dl (31.0-37.0); Mean Corpuscular Volume 99 fL (80-100); Monocytes # (Auto) 0.2 Thou/mm3 (0.0-0.8); Monocytes % (Auto) 6 % (0-12); Neutrophils # (Auto) 2.1 Thou/mm3 (1.8-7.7); Neutrophils % (Auto) 72 % (37-80); Nucleated Red Blood Cell % 0 /100 WBC (0); Platelet Count 196 Thou/mm3 (140-440); RDW Standard Deviation 60.8 fL (36.4-46.3); Red Blood Count 2.88 Miln/mm3 (4.00-5.20)
[2024-09-24 11:59] LABS: White Blood Count 2.9 Thou/mm3 (3.6-11.0)
[2024-09-24 12:11] LABS: Alanine Aminotransferase 23 U/L (10-49); Albumin, Serum 4.2 gm/dL (3.4-4.8); Alkaline Phosphatase 86 U/L (46-116); Anion Gap 9 (7-16); Aspartate Amino Transferase 18 U/L (0-34); BUN/Creatinine Ratio 12 Ratio (12-20); Bilirubin,Total 0.3 mg/dL (0.3-1.2); Blood Urea Nitrogen 7 mg/dL (9-23); Calcium 8.9 mg/dL (8.3-10.6); Calcium (Corrected) 8.9 mg/dL (8.5-10.1); Carbon Dioxide 24.7 mMol/L (20.0-31.0); Chloride 107 mMol/L (98-107); Creatinine (Component) 0.6 mg/dL (0.6-1.3); Globulin 2.1 gm/dL (2.3-3.5); Glucose 146 mg/dL (74-106); Osmolality,Calculated 282 (275-295); Potassium 3.8 mMol/L (3.4-5.1); Sodium 141 mMol/L (136-145); Total Protein 6.3 gm/dL (5.7-8.2); eGFR > 60 See Note
[2024-09-24 12:29] LABS: CA 15-3 18.9 U/mL (<32.4)
[2024-10-01 12:08] LABS: Basophils % (Auto) 1 % (0-2.5); Eosinophils # (Auto) 0.1 Thou/mm3 (0.0-0.5); Eosinophils % (Auto) 2 % (0-10); Hemoglobin 9.7 g/dL (12.0-16.0); Immature Granulocytes % (Auto) 1 % (0-0); Immature Granulocytes Auto 0.02 Thou/mm3 (0.00-0.00); Lymphocytes # (Auto) 0.5 Thou/mm3 (1.0-4.8); Lymphocytes % (Auto) 20 % (10-50); Mean Corpuscular HGB Conc 33.4 g/dl (31.0-37.0); Mean Corpuscular Hemoglobin 32.3 pg (25.0-35.0); Mean Corpuscular Volume 97 fL (80-100); Monocytes # (Auto) 0.2 Thou/mm3 (0.0-0.8); Monocytes % (Auto) 6 % (0-12); Neutrophils # (Auto) 1.8 Thou/mm3 (1.8-7.7); Neutrophils % (Auto) 71 % (37-80); Nucleated Red Blood Cell % 0 /100 WBC (0); Platelet Count 212 Thou/mm3 (140-440); RDW Standard Deviation 58.1 fL (36.4-46.3)
[2024-10-01 12:31] LABS: White Blood Count 2.6 Thou/mm3 (3.6-11.0)
[2024-10-01 12:38] LABS: Alanine Aminotransferase 28 U/L (10-49); Albumin, Serum 4.3 gm/dL (3.4-4.8); Alkaline Phosphatase 89 U/L (46-116); Anion Gap 9 (7-16); Aspartate Amino Transferase 24 U/L (0-34); BUN/Creatinine Ratio 14 Ratio (12-20); Bilirubin,Total 0.3 mg/dL (0.3-1.2); Blood Urea Nitrogen 7 mg/dL (9-23); Calcium 9.1 mg/dL (8.3-10.6); Calcium (Corrected) 9.1 mg/dL (8.5-10.1); Carbon Dioxide 25.7 mMol/L (20.0-31.0); Chloride 108 mMol/L (98-107); Creatinine (Component) 0.5 mg/dL (0.6-1.3); Globulin 2.1 gm/dL (2.3-3.5); Glucose 133 mg/dL (74-106); Osmolality,Calculated 284 (275-295); Potassium 3.6 mMol/L (3.4-5.1); Sodium 143 mMol/L (136-145); Total Protein 6.4 gm/dL (5.7-8.2); eGFR > 60 See Note
[2024-10-01 12:53] LABS: CA 15-3 18.7 U/mL (<32.4)
[2024-10-08 11:37] LABS: Basophils % (Auto) 0 % (0-2.5); Eosinophils % (Auto) 1 % (0-10); Hematocrit 27.7 % (36.0-46.0); Hemoglobin 9.6 g/dL (12.0-16.0); Immature Granulocytes % (Auto) 1 % (0-0); Immature Granulocytes Auto 0.02 Thou/mm3 (0.00-0.00); Lymphocytes # (Auto) 0.6 Thou/mm3 (1.0-4.8); Lymphocytes % (Auto) 24 % (10-50); Mean Corpuscular HGB Conc 34.7 g/dl (31.0-37.0); Mean Corpuscular Hemoglobin 32.8 pg (25.0-35.0); Mean Corpuscular Volume 95 fL (80-100); Monocytes # (Auto) 0.2 Thou/mm3 (0.0-0.8); Monocytes % (Auto) 10 % (0-12); Neutrophils # (Auto) 1.4 Thou/mm3 (1.8-7.7); Neutrophils % (Auto) 63 % (37-80); Nucleated Red Blood Cell % 0 /100 WBC (0); Platelet Count 225 Thou/mm3 (140-440); RDW Standard Deviation 54.3 fL (36.4-46.3); Red Blood Count 2.93 Miln/mm3 (4.00-5.20)
[2024-10-08 11:44] LABS: White Blood Count 2.3 Thou/mm3 (3.6-11.0)
[2024-10-08 11:51] LABS: Alanine Aminotransferase 31 U/L (10-49); Albumin, Serum 4.3 gm/dL (3.4-4.8); Albumin/Globulin Ratio 1.9 (1.2-2.2); Alkaline Phosphatase 90 U/L (46-116); Anion Gap 8 (7-16); Aspartate Amino Transferase 26 U/L (0-34); BUN/Creatinine Ratio 16 Ratio (12-20); Bilirubin,Total 0.3 mg/dL (0.3-1.2); Blood Urea Nitrogen 8 mg/dL (9-23); Calcium 9.4 mg/dL (8.3-10.6); Calcium (Corrected) 9.4 mg/dL (8.5-10.1); Carbon Dioxide 24.1 mMol/L (20.0-31.0); Chloride 110 mMol/L (98-107); Creatinine (Component) 0.5 mg/dL (0.6-1.3); Globulin 2.3 gm/dL (2.3-3.5); Glucose 115 mg/dL (74-106); Osmolality,Calculated 282 (275-295); Potassium 3.8 mMol/L (3.4-5.1); Sodium 142 mMol/L (136-145); Total Protein 6.6 gm/dL (5.7-8.2); eGFR > 60 See Note
[2024-10-08 12:31] LABS: CA 15-3 19.4 U/mL (<32.4)
== END 2024-10-13 23:59 | disposition home or self-care (01) ==
LOC: SCTC 09:59
PROVIDERS: PCP Family Medicine; Referring Provider Family Medicine; Visit Provider Internal Medicine Hematology & Oncology
DX: Z51.11 Encounter for antineoplastic chemotherapy (principal); C50.112 Malignant neoplasm of central portion of left female breast; Z17.421 Hormone receptor negative with human epidermal growth factor receptor 2 negative status; Z90.12 Acquired absence of left breast and nipple; M89.9 Disorder of bone, unspecified; E11.9 Type 2 diabetes mellitus without complications
CPT/HCPCS: 36591; 80053; 85025; 86300; 96367; 96372; 96375; 96413; 96415; 99211; A4216; J1100; J1200; J1453; J1642; J2405; J3490; J7040; J7050; J9267; Q5101; A9270; G0463

== ENCOUNTER → 2024-10-10 | Outpatient (CLI) | payer MEDICAID, SELFPAY ==
--- NOTE | 2024-10-10 12:30 | XR_ITS ---
Examination: MRI of brain without intravenous contrast. MRI brain with intravenous contrast. Date and time of exam:October 10, 2024 1144 hours Comparison PET/CT scan August 16, 2023, MRI brain July 23, 2023 INDICATIONS: Diagnosis malignant neoplasm central portion left female breast, headaches right-sided neck pain beginning 2 years ago, history lesion C2 level cervical cord Technique: Multiple axial and sagittal images of the brain to been obtained. Siemens high-resolution 1.52 Sapphire short bore scanner utilized. Sagittal sections, T1 weighted images, TR 500, TE 14, are performed. Axial sections proton-density and T2-weighted images have been obtained. Inversion recovery axial images, TR 9260, TE 111, TR 2500. Diffusion weighted images, axial sections, TR 4800, TE 128, B value 1000. Axial sections, ADC map, TR 4800, TE 128. Axial and coronal images were also obtained post 11 cc gadolinium administered intravenously. Findings:: Enlargement of the sella turcica is not present. The optic chiasm and infundibular stalk are not remarkable. There is no localized enlargement of the medulla or randy. Fourth ventricle and cerebellar tonsils appear normal in position. No subacute area of hemorrhage density is seen. Fourth ventricle is midline. Mass in the cerebellopontine angle region is not evident. 7th and 8th nerve complexes exhibit symmetry Globes are symmetrical Orbital musculature including medial lateral rectus muscles do not exhibit abnormality Increased white matter signal is not seen Effacement of the cortical sulcal markings is not identified. Mass effect upon the ventricular system is not identified. Diffusion-weighted images demonstrate no focus of restricted diffusion Contrast images demonstrate no abnormal cerebellar or cerebral lesions, sagittal images demonstrate poor definition of the cortex of the odontoid sagittal image 11 Impression: Negative for acute hemorrhage mass effect or midline shift No acute infarct No chronic microvascular white matter change Bilateral mastoiditis Sagittal postcontrast image 10 demonstrates poor definition of the cortex of the odontoid, recommend MRI cervical spine follow-up pre and postcontrast
== END | disposition home or self-care (01) ==
LOC: SMRI 11:02
PROVIDERS: PCP Family Medicine; Referring Provider Internal Medicine Hematology & Oncology; Visit Provider Internal Medicine Hematology & Oncology
DX: R90.82 White matter disease, unspecified (principal); C50.112 Malignant neoplasm of central portion of left female breast
CPT/HCPCS: 70553; A9579

== ENCOUNTER → 2024-10-14 | Outpatient (CLI) | payer MEDICAID, SELFPAY ==
--- NOTE | 2024-10-14 13:15 | XR_ITS ---
EXAMINATION: PET/CT FUSION SKULL TO THIGH EXAM DATE AND TIME: October 14, 2024 1409 hours Comparison August 16, [address] scan, MRI brain October 10, 2024, left breast sonogram May 22, 2024, breast biopsy stereotactic February 21, 2024, CT chest abdomen pelvis May 30, 2023 INDICATIONS: Diagnosis malignant neoplasm breast, restaging post treatment CTDI:vol (mGy) 3.49 DLP: (mGycm) 275 PROCEDURE: 16.4 mCi FDG was administered intravenously To allow for distribution and uptake of radiotracer, the patient was allowed to rest quietly in a shielded room. Imaging was performed on an integrated 16-slice PET/CT scanner, with scanning from the skull base to the mid thigh. Serum blood glucose at the time of the injection was measured 90 mg/dL. CT scanning was performed without oral or intravenous contrast material. FINDINGS: Head and Neck: There is no felicia hypermetabolism in the neck. The visualized portions of the brain are normal in appearance on CT. Chest: There is no felicia hypermetabolism in the chest. There are no pulmonary nodules. 29 mm seroma left axilla, post treatment changes left breast, mild Axial image 76 demonstrates 5 mm pulmonary nodule right midlung Abdomen and Pelvis: There is no felicia hypermetabolism in retroperitoneal or pelvic chains. The spleen is normal in size and FDG avidity. Musculoskeletal: Marrow uptake is within normal range. IMPRESSION: Interval 5 mm noncalcified pulmonary nodule right midlung, recommend high-resolution CT chest without contrast follow-up
== END | disposition home or self-care (01) ==
PROVIDERS: Referring Provider Internal Medicine Hematology & Oncology; Visit Provider Internal Medicine Hematology & Oncology
DX: R91.1 Solitary pulmonary nodule (principal); C50.112 Malignant neoplasm of central portion of left female breast
CPT/HCPCS: 78815; A9552

== ENCOUNTER 2024-11-12 09:08 | Outpatient (RCR) | payer MEDICAID, SELFPAY ==
[2024-10-15 13:41] LABS: Basophils % (Auto) 1 % (0-2.5); Eosinophils % (Auto) 1 % (0-10); Hematocrit 28.7 % (36.0-46.0); Hemoglobin 9.8 g/dL (12.0-16.0); Immature Granulocytes % (Auto) 5 % (0-0); Immature Granulocytes Auto 0.16 Thou/mm3 (0.00-0.00); Lymphocytes # (Auto) 0.7 Thou/mm3 (1.0-4.8); Lymphocytes % (Auto) 22 % (10-50); Mean Corpuscular HGB Conc 34.1 g/dl (31.0-37.0); Mean Corpuscular Hemoglobin 32.9 pg (25.0-35.0); Mean Corpuscular Volume 96 fL (80-100); Monocytes # (Auto) 0.5 Thou/mm3 (0.0-0.8); Monocytes % (Auto) 15 % (0-12); Neutrophils # (Auto) 1.8 Thou/mm3 (1.8-7.7); Neutrophils % (Auto) 57 % (37-80); Nucleated Red Blood Cell % 0 /100 WBC (0); Platelet Count 210 Thou/mm3 (140-440); RDW Standard Deviation 53.5 fL (36.4-46.3); Red Blood Count 2.98 Miln/mm3 (4.00-5.20); White Blood Count 3.2 Thou/mm3 (3.6-11.0)
[2024-10-15 13:57] LABS: Alanine Aminotransferase 28 U/L (10-49); Albumin, Serum 4.3 gm/dL (3.4-4.8); Alkaline Phosphatase 96 U/L (46-116); Anion Gap 8 (7-16); Aspartate Amino Transferase 23 U/L (0-34); BUN/Creatinine Ratio 20 Ratio (12-20); Bilirubin,Total 0.3 mg/dL (0.3-1.2); Blood Urea Nitrogen 8 mg/dL (9-23); Calcium 8.9 mg/dL (8.3-10.6); Calcium (Corrected) 8.9 mg/dL (8.5-10.1); Carbon Dioxide 24.6 mMol/L (20.0-31.0); Chloride 109 mMol/L (98-107); Creatinine (Component) 0.4 mg/dL (0.6-1.3); Globulin 2.2 gm/dL (2.3-3.5); Glucose 97 mg/dL (74-106); Osmolality,Calculated 281 (275-295); Potassium 3.6 mMol/L (3.4-5.1); Sodium 142 mMol/L (136-145); Total Protein 6.5 gm/dL (5.7-8.2); eGFR > 60 See Note
[2024-10-15 14:14] LABS: CA 15-3 17.4 U/mL (<32.4)
[2024-10-22 12:01] LABS: Basophils % (Auto) 0 % (0-2.5); Eosinophils % (Auto) 1 % (0-10); Hematocrit 28.3 % (36.0-46.0); Hemoglobin 9.5 g/dL (12.0-16.0); Immature Granulocytes % (Auto) 1 % (0-0); Immature Granulocytes Auto 0.02 Thou/mm3 (0.00-0.00); Lymphocytes # (Auto) 0.6 Thou/mm3 (1.0-4.8); Lymphocytes % (Auto) 24 % (10-50); Mean Corpuscular HGB Conc 33.6 g/dl (31.0-37.0); Mean Corpuscular Hemoglobin 33.1 pg (25.0-35.0); Mean Corpuscular Volume 99 fL (80-100); Monocytes # (Auto) 0.2 Thou/mm3 (0.0-0.8); Monocytes % (Auto) 8 % (0-12); Neutrophils # (Auto) 1.6 Thou/mm3 (1.8-7.7); Neutrophils % (Auto) 67 % (37-80); Nucleated Red Blood Cell % 0 /100 WBC (0); Platelet Count 213 Thou/mm3 (140-440); RDW Standard Deviation 51.6 fL (36.4-46.3); Red Blood Count 2.87 Miln/mm3 (4.00-5.20)
[2024-10-22 12:09] LABS: White Blood Count 2.4 Thou/mm3 (3.6-11.0)
[2024-10-22 12:29] LABS: Alanine Aminotransferase 27 U/L (10-49); Albumin, Serum 4.2 gm/dL (3.4-4.8); Alkaline Phosphatase 82 U/L (46-116); Anion Gap 10 (7-16); Aspartate Amino Transferase 24 U/L (0-34); BUN/Creatinine Ratio 18 Ratio (12-20); Bilirubin,Total 0.3 mg/dL (0.3-1.2); Blood Urea Nitrogen 7 mg/dL (9-23); Calcium 9.2 mg/dL (8.3-10.6); Calcium (Corrected) 9.2 mg/dL (8.5-10.1); Carbon Dioxide 24.4 mMol/L (20.0-31.0); Chloride 109 mMol/L (98-107); Creatinine (Component) 0.4 mg/dL (0.6-1.3); Globulin 2.1 gm/dL (2.3-3.5); Glucose 100 mg/dL (74-106); Osmolality,Calculated 282 (275-295); Potassium 3.9 mMol/L (3.4-5.1); Sodium 143 mMol/L (136-145); Total Protein 6.3 gm/dL (5.7-8.2); eGFR > 60 See Note
[2024-10-22 12:39] LABS: CA 15-3 17.2 U/mL (<32.4)
[2024-10-29 12:03] LABS: Basophils % (Auto) 1 % (0-2.5); Eosinophils % (Auto) 1 % (0-10); Mean Corpuscular Volume 97 fL (80-100); Monocytes # (Auto) 0.1 Thou/mm3 (0.0-0.8); Neutrophils % (Auto) 61 % (37-80); Nucleated Red Blood Cell % 0 /100 WBC (0)
[2024-10-29 12:04] LABS: Hematocrit 26.7 % (36.0-46.0); Hemoglobin 9.1 g/dL (12.0-16.0); Immature Granulocytes % (Auto) 1 % (0-0); Immature Granulocytes Auto 0.02 Thou/mm3 (0.00-0.00); Lymphocytes # (Auto) 0.5 Thou/mm3 (1.0-4.8); Lymphocytes % (Auto) 28 % (10-50); Mean Corpuscular HGB Conc 34.1 g/dl (31.0-37.0); Monocytes % (Auto) 8 % (0-12); Neutrophils # (Auto) 1.1 Thou/mm3 (1.8-7.7); Platelet Count 221 Thou/mm3 (140-440); Red Blood Count 2.76 Miln/mm3 (4.00-5.20)
[2024-10-29 12:10] LABS: White Blood Count 1.9 Thou/mm3 (3.6-11.0)
[2024-10-29 12:25] LABS: Alanine Aminotransferase 27 U/L (10-49); Alkaline Phosphatase 86 U/L (46-116); Anion Gap 5 (7-16); Aspartate Amino Transferase 23 U/L (0-34); BUN/Creatinine Ratio 12 Ratio (12-20); Bilirubin,Total 0.2 mg/dL (0.3-1.2); Blood Urea Nitrogen 6 mg/dL (9-23); Calcium 8.6 mg/dL (8.3-10.6); Calcium (Corrected) 8.6 mg/dL (8.5-10.1); Chloride 112 mMol/L (98-107); Creatinine (Component) 0.5 mg/dL (0.6-1.3); Glucose 125 mg/dL (74-106); Osmolality,Calculated 283 (275-295); Potassium 3.9 mMol/L (3.4-5.1); Sodium 143 mMol/L (136-145); eGFR > 60 See Note
--- NOTE | 2024-11-04 23:39 | CTCFLWUP_ITS ---
Patient: MARLYN ESTEVES : 1965 Page 8 of 9 FOLLOW UP NOTE DATE OF SERVICE: 11/04/2024 NAME: MARLYN ESTEVES ACCOUNT: [id number] : 1965 AGE: 59 INTERVAL HISTORY: Chief Complaint Thickness in the left axilla, knot in your axilla , backache History of Present Illness Andrew presents for follow-up of cancer treatment and evaluation of recent symptoms. The patient's primary concern is a knot felt in the left axilla, described as a hardness over a previously resected lymph node. This symptom is causing significant stress and anxiety for the patient. The patient also reports a history of backache, which was a complaint during the previous visit. However, no specific details about the onset, duration, or characteristics of the backache are provided in the transcript. The patient is currently undergoing chemotherapy, with the last treatment scheduled for November 20. They are advised to focus on completing the chemotherapy regimen, exercising, eating healthy, and maintaining their weight. The patient's stress levels appear to be elevated, as noted by the clinician's observation of the patient's facial expression. There is mention of inflammation in the mastoids, but no specific symptoms related to this finding are described by the patient. ONCOLOGY HISTORY: DIAGNOSIS: Malignant neoplasm of central portion of left female breast [ICD10] C50.112 DATE OF DIAGNOSIS: 10/16/2023 triple negative breast cancer STAGE/TNM: Stage IIa left breast triple negative breast S/p lumpectomy TREATMENT HISTORY: Care?Plan Start?Date Cycle Day Intent AC?4?cy?DD?Taxol?wkly?12?wks 03/26/2024 1 7 Curative?(adjuvant) AC?4?cy?DD?Taxol?wkly?12?wks 04/02/2024 2 7 Curative?(adjuvant) HISTORY OF PRESENT ILLNESS: Marlyn Esteves is a 59-year-old S[place] speaking female with history of diabetes has been having neck pain with radiation to the right upper extremity for last 1 year. She has the following work-up done so far. Ms. Esteves is referred to medical oncology to rule out malignancy. 09/28/2022: CT scan of the spine cervical spine without contrast 11/28/2022: MRI of the cervical spine with and without contrast 01/18/2023: Bilateral screening mammogram done at [facility] 03/22/2023:Bone scan 05/30/2023: CT scan of the chest abdomen and pelvis with IV contrast 07/03/2023: Bilateral screening mammograms 08/16/2023: PET/CT scan 08/22/2023: Bilateral breast ultrasound 10/16/2023: Stereotactic guided vacuum-assisted left breast biopsy with clip placement? 11/06/2023: [facility] Hereditary cancer panel negative for BRCA 1and2 mutations 11/13/2023: Echocardiogram?LVEF 60-65%. 02/21/2024: Ms. Esteves had left breast lumpectomy and sentinel lymph node biopsy OTHER MEDICAL HISTORY/CONDITIONS: Diabetes Hyperlidiemia Tubal?ligation-1995 ?- FAMILY HISTORY: Patient?denies?family?cancer?history. SOCIAL HISTORY: Occupational?History:?Unemployed?- Education?Level:?Completed something less than 8th grade Marital?Status:? Tobacco?Use:?Denies ETOH?Use:?Denies Drug?Note:?Denues Social?History?Note:?Lives?alone REFINING EQUIPMENT OPERATOR HISTORY: Menarche?-?Age:?10 Menopause:?Age?51 :?5 Live?Births:?5 Age?1st?:?16 Gynecological?Note:?!?set?of?twins MEDICATIONS: 1. acetaminophen - 500 mg 1 tab As needed 2. cyclobenzaprine - 10 mg 1 tab Three times a day 3. gabapentin - 100 mg 1 Capsule Three times a day 4. meloxicam - 15 mg 1 tab Daily 5. ondansetron - 8 mg tab As needed 6. potassium chloride - 20 mEq 1 tab Daily 7. prochlorperazine - 5 mg 1 Suppository As needed 8. simvastatin - 20 mg 1 tab Daily 9. traMADol - 50 mg 1 tab Twice a Day 10. Vitamin D3 - 2,000 unit 1 Capsule Daily 11. Zithromax Z-Sarath - 250 mg 1 - 2 tab 2 tabs day one then one daily over 5 days Medications Last Reconciled by Etelvina Braxton MA on 11/04/2024 ALLERGIES: No Known Drug Allergies REVIEW OF SYSTEMS: A complete 14-point review of systems was performed and is negative except as noted in interval history. PHYSICAL EXAMINATION: VITAL SIGNS: Temperature?97.7, B/P?123/80, Oxygen?Saturation?97% Weight?119?lbs (Change?since?11/03/24:?-0.8?lbs) PAIN: 0 - No pain ECOG Performance Status: 0 - Asymptomatic and fully active EYE: Conjunctivae is white MOUTH: Oral cavity is moist no tenderness present in the cervical spine. Biopsy site on the left breast looks good. No signs of infection. CHEST: Clear to auscultation. No wheezes or rales audible. CARDIAC: Rhythm regular, no murmurs or gallops present. ABDOMEN: Soft. No hepatomegaly. No splenomegaly. EXTREMITIES: No pedal edema or cyanosis. LABORATORY DATA: I have personally reviewed and interpreted each of the patient?s relevant lab tests, abnormal findings are below: Date 10/22/24 10/29/24 ??WHITE?BLOOD?COUNT?(Thou/mm3) 2.4?L 1.9?L ??RED?BLOOD?COUNT?(Miln/mm3) 2.87?L 2.76?L ??HEMOGLOBIN?(gm/dl) 9.5?L 9.1?L ??HEMATOCRIT?(%) 28.3?L 26.7?L ??PLATELET?COUNT?(Thou/mm3) 213 221 ??NEUTROPHILS?%,?AUTO?(%) 67 61 ??LYMPH?%,?AUTO?(%) 24 28 ??NEUTROPHILS,?AUTO?(Thou/mm3) 1.6?L 1.1?L ??GLUCOSE,RANDOM?(mg/dL) 100 125?H ??BLOOD?UREA?NITROGEN?(mg/dL) 7?L 6?L ??CREATININE?(mg/dL) 0.40?L 0.50?L ??SODIUM?(mmol/L) 143 143 ??POTASSIUM?(mmol/L) 3.9 3.9 ??CHLORIDE?(mmol/L) 109?H 112?H ??CrCl?(CandG)?(ml/min) 129.37 103.50 ??AST/SGOT?(Unit/L) 24 23 ??ALT/SGPT?(Unit/L) 27 27 ??ALKALINE?PHOSPHATASE?(Unit/L) 82 86 ??BILIRUBIN,?TOTAL?(mg/dL) 0.3 0.2?L ??PROTEIN?TOTAL?(gm/dl) 6.3 6.0 ??ALBUMIN,?SERUM?(gm/dl) 4.2 4.0 ??GLOBULIN?(gm/dl) 2.1?L 2.0?L ??ALBUMIN/GLOBULIN?RATIO 2.0 2.0 ??CALCIUM,?SERUM?(mg/dL) 9.2 8.6 ??CALCIUM?SERUM?(CORRECTED)?(mg/dL) 9.2 8.6 ASSESSMENT/PLAN: 1. Stage IIa (pT2, snN 0, M0)moderately differentiated invasive ductal carcinoma of the left breast with lymphovascular invasion, Ki-67 75%. S/p lumpectomy and sentinel lymph node biopsy on 02/21/2020 Patient was initially diagnosed in October 2023 but got her surgery done in 03/04/2024 and did not receive neoadjuvant chemotherapy Patient was seen by me in April 2020 for and at that time patient complained of palpable left axillary lymph node. Patient was sent for left axillary lymph node biopsy. Left axillary lymph node biopsy is negative so Ms. Esteves remains stage II and chemotherapy was started. Initially,clinical stage Ia (cT1c, N0, M0) triple negative invasive ductal carcinoma, moderately differentiated of left breast, status post left breast stereotactic core biopsy (10/16/2023) BRCA 1and2 negative PET/CT scan negative for metastatic disease (08/16/2023. Started on chemotherapy with AC followed by paclitaxel Tolerating chemotherapy but patient have frequent delays Continue chemotherapy Andrew, patient with history of cancer, presents for follow-up after recent imaging and blood tests, complaining of backache and a knot in the axilla. Cancer surveillance Recent PET-CT scan, Natra testing, brain scan, and Derrell blood test all negative for cancer recurrence. Small calcified nodule noted in lung, likely from old infection. Heart scan normal. Patient reports feeling a knot in axilla; PET scan negative, but hardness felt over previously resected lymph node on examination. Inflammation noted in mastoids. Plan: - Continue cancer surveillance with Derrell testing every 3 months - Schedule CT scan in January (after completion of chemotherapy) - Refer to Dr. Rae for biopsy of axillary hardness - Complete final chemotherapy session on November 20 - Follow-up appointment in 2 months with scan results - Consider ENT referral for mastoid inflammation after chemotherapy completion Stress management Assessment: Patient appears stressed, which may potentially affect cancer growth. Plan: - Educate on stress management techniques: meditation, self-calming, grounding exercises - Encourage focus on completing chemotherapy, exercising, maintaining healthy diet, and avoiding weight gain 2. Advised to take nausea medicine regularly 3. sclerotic lesion involving the right lateral facet of C2 vertebral body. This is not biopsied.follow with ortho 4. Type 2 diabetes 5. Dense sclerotic lesion involving the right lateral facet of the C2 vertebral body and follows with orthopedic surgeon in [place] ORDERS: Order # Description [id number] CBC with Auto Diff + CA 15-3 [id number] Comprehensive Metabolic Panel - 12 [id number] MD Follow Up [id number] Scan + Chest + With Contrast [id number] Comprehensive Metabolic Panel - 12 + CBC with Auto Diff + CA 15-3 [id number] MD Follow Up 3 Months RETURN TO CLINIC: BILLING AND COMPLIANCE: I reviewed external records from providers outside my specialty as summarized above. I spent a total of 50 minutes on this patient?s care on the day of their visit excluding time spent related to any billed procedures. This time includes time spent with the patient as well as time spent documenting in the medical record, reviewing patients records and tests, obtaining history, placing orders, communicating with other healthcare professionals, counseling the patient, family or caregiver, and/or care coordination for the diagnoses above. Electronically Signed by: {Object.Sanct_ID*PnP.NameFL@M}, {Object.Sanct_ID*PnP.Suffix@U} D: {Object.Sanct_Date} T: {Object.Sanct_Time} CC: PCP: No Primary/family, Physician Referring: Danny Jones This document was completed utilizing speech recognition software. Grammatical errors, random word insertions, pronoun errors, and incomplete sentences are an occasional consequence of this system due to software limitations, ambient noise, and hardware issues. Any formal questions or concerns about the content, text or information contained within the body of this dictation should be directly addressed to the provider for clarification.
[2024-11-05 12:03] LABS: Basophils # (Auto) 0.1 Thou/mm3 (0.0-0.2); Basophils % (Auto) 0 % (0-2.5); Eosinophils # (Auto) 0.1 Thou/mm3 (0.0-0.5); Eosinophils % (Auto) 1 % (0-10); Immature Granulocytes % (Auto) 18 % (0-0); Lymphocytes # (Auto) 1.5 Thou/mm3 (1.0-4.8); Lymphocytes % (Auto) 7 % (10-50); Mean Corpuscular HGB Conc 33.3 g/dl (31.0-37.0); Mean Corpuscular Hemoglobin 32.7 pg (25.0-35.0); Mean Corpuscular Volume 98 fL (80-100); Monocytes # (Auto) 2.3 Thou/mm3 (0.0-0.8); Monocytes % (Auto) 11 % (0-12); Neutrophils # (Auto) 13.7 Thou/mm3 (1.8-7.7); Neutrophils % (Auto) 64 % (37-80); Nucleated Red Blood Cell # 0.06 Thou/mm3 (0.00-0.00); Nucleated Red Blood Cell % 0 /100 WBC (0); Platelet Count 189 Thou/mm3 (140-440); RDW Standard Deviation 53.1 fL (36.4-46.3); Red Blood Count 3.06 Miln/mm3 (4.00-5.20); White Blood Count 21.6 Thou/mm3 (3.6-11.0)
[2024-11-05 12:19] LABS: Alanine Aminotransferase 28 U/L (10-49); Albumin, Serum 4.4 gm/dL (3.4-4.8); Albumin/Globulin Ratio 2.2 (1.2-2.2); Alkaline Phosphatase 151 U/L (46-116); Anion Gap 9 (7-16); Aspartate Amino Transferase 28 U/L (0-34); BUN/Creatinine Ratio 14 Ratio (12-20); Bilirubin,Total 0.2 mg/dL (0.3-1.2); Blood Urea Nitrogen 7 mg/dL (9-23); Calcium 8.9 mg/dL (8.3-10.6); Calcium (Corrected) 8.9 mg/dL (8.5-10.1); Carbon Dioxide 24.8 mMol/L (20.0-31.0); Chloride 109 mMol/L (98-107); Creatinine (Component) 0.5 mg/dL (0.6-1.3); Glucose 100 mg/dL (74-106); Osmolality,Calculated 282 (275-295); Potassium 3.7 mMol/L (3.4-5.1); Sodium 143 mMol/L (136-145); Total Protein 6.4 gm/dL (5.7-8.2); eGFR > 60 See Note
[2024-11-05 12:33] LABS: CA 15-3 19.5 U/mL (<32.4)
[2024-11-12 09:52] LABS: Basophils % (Auto) 1 % (0-2.5); Eosinophils % (Auto) 1 % (0-10); Hematocrit 27.9 % (36.0-46.0); Hemoglobin 9.6 g/dL (12.0-16.0); Immature Granulocytes % (Auto) 1 % (0-0); Immature Granulocytes Auto 0.02 Thou/mm3 (0.00-0.00); Lymphocytes # (Auto) 0.7 Thou/mm3 (1.0-4.8); Lymphocytes % (Auto) 30 % (10-50); Mean Corpuscular HGB Conc 34.4 g/dl (31.0-37.0); Mean Corpuscular Hemoglobin 32.9 pg (25.0-35.0); Mean Corpuscular Volume 96 fL (80-100); Monocytes # (Auto) 0.2 Thou/mm3 (0.0-0.8); Monocytes % (Auto) 7 % (0-12); Neutrophils # (Auto) 1.4 Thou/mm3 (1.8-7.7); Neutrophils % (Auto) 61 % (37-80); Nucleated Red Blood Cell % 0 /100 WBC (0); Platelet Count 150 Thou/mm3 (140-440); RDW Standard Deviation 48.4 fL (36.4-46.3); Red Blood Count 2.92 Miln/mm3 (4.00-5.20)
[2024-11-12 10:19] LABS: White Blood Count 2.2 Thou/mm3 (3.6-11.0)
[2024-11-12 10:23] LABS: Alanine Aminotransferase 23 U/L (10-49); Albumin, Serum 4.1 gm/dL (3.4-4.8); Albumin/Globulin Ratio 2.1 (1.2-2.2); Alkaline Phosphatase 92 U/L (46-116); Anion Gap 10 (7-16); Aspartate Amino Transferase 20 U/L (0-34); BUN/Creatinine Ratio 16 Ratio (12-20); Bilirubin,Total 0.3 mg/dL (0.3-1.2); Blood Urea Nitrogen 8 mg/dL (9-23); Calcium 8.9 mg/dL (8.3-10.6); Calcium (Corrected) 8.9 mg/dL (8.5-10.1); Carbon Dioxide 24.2 mMol/L (20.0-31.0); Chloride 110 mMol/L (98-107); Creatinine (Component) 0.5 mg/dL (0.6-1.3); Glucose 141 mg/dL (74-106); Osmolality,Calculated 287 (275-295); Potassium 3.6 mMol/L (3.4-5.1); Sodium 144 mMol/L (136-145); Total Protein 6.1 gm/dL (5.7-8.2); eGFR > 60 See Note
[2024-11-12 10:38] LABS: CA 15-3 15.9 U/mL (<32.4)
== END 2024-11-12 23:59 | disposition home or self-care (01) ==
LOC: SCTC 09:08
PROVIDERS: Referring Provider Internal Medicine Hematology & Oncology; Visit Provider Internal Medicine Hematology & Oncology
DX: Z51.11 Encounter for antineoplastic chemotherapy (principal); C50.112 Malignant neoplasm of central portion of left female breast; Z17.421 Hormone receptor negative with human epidermal growth factor receptor 2 negative status; M89.9 Disorder of bone, unspecified; R91.1 Solitary pulmonary nodule; Z90.12 Acquired absence of left breast and nipple; M54.9 Dorsalgia, unspecified; E11.9 Type 2 diabetes mellitus without complications; F41.9 Anxiety disorder, unspecified
CPT/HCPCS: 36591; 80053; 85025; 86300; 96367; 96368; 96372; 96375; 96413; 96415; 99213; A4216; J1100; J1200; J1453; J1642; J2405; J3490; J7040; J7050; J9267; Q5101; A9270; G0463

== ENCOUNTER 2024-11-20 08:23 | Outpatient (RCR) | payer MEDICAID, SELFPAY ==
[2024-11-19 10:42] LABS: Basophils % (Auto) 0 % (0-2.5); Eosinophils % (Auto) 1 % (0-10); Hematocrit 27.5 % (36.0-46.0); Hemoglobin 9.5 g/dL (12.0-16.0); Immature Granulocytes % (Auto) 1 % (0-0); Immature Granulocytes Auto 0.02 Thou/mm3 (0.00-0.00); Lymphocytes # (Auto) 0.8 Thou/mm3 (1.0-4.8); Lymphocytes % (Auto) 31 % (10-50); Mean Corpuscular HGB Conc 34.5 g/dl (31.0-37.0); Mean Corpuscular Hemoglobin 33.2 pg (25.0-35.0); Mean Corpuscular Volume 96 fL (80-100); Monocytes # (Auto) 0.2 Thou/mm3 (0.0-0.8); Monocytes % (Auto) 8 % (0-12); Neutrophils # (Auto) 1.4 Thou/mm3 (1.8-7.7); Neutrophils % (Auto) 59 % (37-80); Nucleated Red Blood Cell % 0 /100 WBC (0); Platelet Count 215 Thou/mm3 (140-440); RDW Standard Deviation 49.7 fL (36.4-46.3); Red Blood Count 2.86 Miln/mm3 (4.00-5.20)
[2024-11-19 10:55] LABS: White Blood Count 2.4 Thou/mm3 (3.6-11.0)
[2024-11-19 11:01] LABS: Alanine Aminotransferase 20 U/L (10-49); Albumin, Serum 4.3 gm/dL (3.4-4.8); Alkaline Phosphatase 102 U/L (46-116); Anion Gap 8 (7-16); Aspartate Amino Transferase 20 U/L (0-34); BUN/Creatinine Ratio 18 Ratio (12-20); Bilirubin,Total 0.3 mg/dL (0.3-1.2); Blood Urea Nitrogen 7 mg/dL (9-23); Calcium 8.8 mg/dL (8.3-10.6); Calcium (Corrected) 8.8 mg/dL (8.5-10.1); Chloride 105 mMol/L (98-107); Creatinine (Component) 0.4 mg/dL (0.6-1.3); Globulin 2.1 gm/dL (2.3-3.5); Glucose 104 mg/dL (74-106); Osmolality,Calculated 273 (275-295); Potassium 3.9 mMol/L (3.4-5.1); Sodium 138 mMol/L (136-145); Total Protein 6.4 gm/dL (5.7-8.2); eGFR > 60 See Note
[2024-11-19 12:15] LABS: CA 15-3 17.7 U/mL (<32.4)
== END 2024-12-13 23:59 | disposition home or self-care (01) ==
LOC: SCTC 08:23
PROVIDERS: PCP Family Medicine; Referring Provider Family Medicine; Visit Provider Internal Medicine Hematology & Oncology
DX: Z51.11 Encounter for antineoplastic chemotherapy (principal); C50.112 Malignant neoplasm of central portion of left female breast; Z17.421 Hormone receptor negative with human epidermal growth factor receptor 2 negative status; M89.9 Disorder of bone, unspecified; Z90.12 Acquired absence of left breast and nipple; M54.9 Dorsalgia, unspecified; R91.1 Solitary pulmonary nodule; Z73.3 Stress, not elsewhere classified; E11.9 Type 2 diabetes mellitus without complications; F41.9 Anxiety disorder, unspecified; N64.59 Other signs and symptoms in breast
CPT/HCPCS: 36591; 80053; 85025; 86300; 96367; 96375; 96413; 96415; A4216; J1100; J1453; J1642; J2405; J3490; J7040; J7050; J9267; A9270

== ENCOUNTER → 2024-12-10 | Outpatient (CLI) | payer MEDICAID, SELFPAY ==
--- NOTE | 2024-12-10 15:30 | XR_ITS ---
Examination: CT chest, without intravenous contrast. Sagittal and coronal 2-D reconstructions. Exam date and time: December 10, 2024 at 1537 hours Comparison May 30, 2023 INDICATIONS: Diagnosis malignant neoplasm central portion left female breast February 2024, restaging CTDI:vol (mGy) 7.85 DLP: (mGycm) 276 Technique: Multiple 3.0 mm axial sections of the chest to been obtained. Bone and lung density settings are obtained. Sagittal and coronal 2-D reconstructions have been obtained. Low dose protocols were performed. One or more of the following dose reduction techniques were used; automated exposure control, adjustment of the mA and/or KV according to patient size, use of iterative reconstruction technique. Findings: Probable seroma in the left axilla, 29 mm with left axillary surgical clips Presumed posttreatment changes left breast with skin thickening No paratracheal tracheobronchial or bronchopulmonary adenopathy Interval 4 pulmonary nodules right upper lobe ranging in size from 2 to 4 mm No pneumonia or pulmonary edema Diffuse fatty infiltration throughout the liver Contracted gallbladder No splenic or pancreatic mass No hydronephrosis Prominent osteopenia IMPRESSION: Recommend left breast axillary sonography follow-up to confirm 29 mm left axillary seroma Interval 4 subcentimeter pulmonary nodules right upper lobe, suggest continued 6 month follow-up CT chest without contrast
== END | disposition home or self-care (01) ==
PROVIDERS: PCP Family Medicine; Referring Provider Radiology Therapeutic Radiology; Visit Provider Radiology Therapeutic Radiology
DX: R91.8 Other nonspecific abnormal finding of lung field (principal); R92.8 Other abnormal and inconclusive findings on diagnostic imaging of breast; C50.112 Malignant neoplasm of central portion of left female breast
CPT/HCPCS: 71250

== ENCOUNTER → 2025-01-06 | Outpatient (CLI) | payer MEDICAID, SELFPAY ==
--- NOTE | 2025-01-06 17:00 | ECHO_ITS ---
Transthoracic Echo Report Ht (in): 66 Wt (lb): 122 Exam Location: Echo Lab Status: Preadmit Spooling Operator: Christine Rice Indications: Procedure Performed: BP: / HR: Technical Quality: Poor MEASUREMENTS (Male / Female) Normal Values 2D ECHO LV Diastolic Diameter PLAX 3.8 cm 4.2 - 5.9 / 3.9 - 5.3 cm LV Systolic Diameter PLAX 2.7 cm IVS Diastolic Thickness 0.8 cm 0.6 - 1.0 / 0.6 - 0.9 cm LVPW Diastolic Thickness 0.9 cm 0.6 - 1.0 / 0.6 - 0.9 cm LV Relative Wall Thickness 0.4 LVOT Diameter 1.6 cm Aortic Root Diameter 2.3 cm LA Systolic Diameter LX 2.4 cm 3.0 - 4.0 / 2.7 - 3.8 cm LV Ejection Fraction MOD 4C 55.6 % LV Ejection Fraction 4C AL 55.7 % LV Ejection Fraction MOD 2C 52.4 % LV Ejection Fraction 2C AL 53.8 % LA Volume Index 13.8 cm?/m? 16 - 28 cm?/m? M-MODE Aortic Root Diameter MM 1.8 cm LA Systolic Diameter MM 3.3 cm LA Ao Ratio MM 1.8 AV Cusp Separation MM 1.7 cm DOPPLER AV Peak Velocity 100.0 cm/s AV Peak Gradient 4.0 mmHg AV Mean Gradient 3.0 mmHg AV Velocity Time Integral 21.1 cm LVOT Peak Velocity 76.1 cm/s LVOT Peak Gradient 2.3 mmHg LVOT Velocity Time Integral 16.7 cm AV Area Cont Eq vti 1.6 cm? AV Area Cont Eq pk 1.5 cm? MV Area PHT 5.1 cm? Mitral E Point Velocity 45.6 cm/s Mitral A Point Velocity 58.2 cm/s Mitral E to A Ratio 0.8 LV E' Lateral Velocity 9.1 cm/s Mitral E to LV E' Lateral Ratio 5.0 LV E' Septal Velocity 5.0 cm/s Mitral E to LV E' Septal Ratio 9.1 TR Peak Velocity 234.7 cm/s TR Peak Gradient 22.0 mmHg PV Peak Velocity 90.9 cm/s PV Peak Gradient 3.3 mmHg FINDINGS Left Ventricle Normal left ventricular size, wall thickness, systolic function with no obvious regional wall motion abnormalities.there is grade I diastolic dysfunction of the left ventricle (impaired relaxation pattern). The ejection fraction is visually estimated at 55 %. Right Ventricle The right ventricle is normal in size and systolic function. The estimated right ventricular systolic pressure, 29 mmHg. RAP 5. Left Atrium The left atrium is normal by two-dimensional, color flow and Doppler imaging with no structural abnormalities, no thrombus formation present. Right Atrium The right atrium is normal by two-dimensional imaging, color flow and Doppler imaging with no structural abnormalities, no thrombus formation present. Atrial Septum The interatrial septum appears normal with no evidence of a shunt. Aorta The aorta is normal by two-dimensional, color flow and Doppler interrogation. Mitral Valve The mitral valve is normal by two-dimensional, color flow and Doppler interrogation. Trace mitral regurgitation. Aortic Valve The aortic valve is trileaflet and normal by two-dimensional, color flow and Doppler interrogation. There is no significant aortic valve regurgitation. Tricuspid Valve The tricuspid valve is normal by two-dimensional, color flow and Doppler interrogation. There is mild tricuspid valve regurgitation. Pulmonic Valve The pulmonic valve is not well visualized. There is no significant pulmonic valve regurgitation. Vessels The pulmonary artery appears normal. The inferior vena cava pulmonary and hepatic veins appear normal. Pericardium The pericardium is normal by two-dimensional imaging. There is no significant pericardial effusion. CONCLUSIONS Indication: Disorder of bone Normal LV size and function. Grade I diastolic dysfunction. Estimated EF at 55- 60%. Normal RV size and function. Estimated RVSP is mildly elevated at 30 to 35 mmHg. Trace MR and mild TR. No pericardial effusion. Paul Pollard (Electronically Signed) Final Date: 08 January 2025 18:11
== END | disposition home or self-care (01) ==
PROVIDERS: PCP Family Medicine; Referring Provider Internal Medicine Hematology & Oncology; Visit Provider Internal Medicine Hematology & Oncology
DX: M89.9 Disorder of bone, unspecified (principal); X58.XXXA Exposure to other specified factors, initial encounter; I51.89 Other ill-defined heart diseases
CPT/HCPCS: 93306

== ENCOUNTER 2025-02-03 12:22 | Outpatient (RCR) | payer MEDICAID, SELFPAY ==
[2025-02-02 10:03] LABS: Basophils # (Auto) 0.0 Thou/mm3 (0.0-0.2); Basophils % (Auto) 0 % (0-2.5); Eosinophils # (Auto) 0.1 Thou/mm3 (0.0-0.5); Eosinophils % (Auto) 2 % (0-10); Hematocrit 32.4 % (36.0-46.0); Hemoglobin 11.3 g/dL (12.0-16.0); Immature Granulocytes Auto 0.01 Thou/mm3 (0.00-0.00); Lymphocytes # (Auto) 1.3 Thou/mm3 (1.0-4.8); Lymphocytes % (Auto) 29 % (10-50); Mean Corpuscular HGB Conc 34.9 g/dl (31.0-37.0); Mean Corpuscular Hemoglobin 31.5 pg (25.0-35.0); Mean Corpuscular Volume 90 fL (80-100); Monocytes # (Auto) 0.4 Thou/mm3 (0.0-0.8); Monocytes % (Auto) 9 % (0-12); Neutrophils # (Auto) 2.7 Thou/mm3 (1.8-7.7); Neutrophils % (Auto) 60 % (37-80); Nucleated Red Blood Cell # 0.00 Thou/mm3 (0.00-0.00); Nucleated Red Blood Cell % 0 /100 WBC (0); Platelet Count 169 Thou/mm3 (140-440); RDW Standard Deviation 42.5 fL (36.4-46.3); Red Blood Count 3.59 Miln/mm3 (4.00-5.20); White Blood Count 4.5 Thou/mm3 (3.6-11.0)
[2025-02-02 10:25] LABS: Alanine Aminotransferase 29 U/L (10-49); Albumin, Serum 4.4 gm/dL (3.4-4.8); Albumin/Globulin Ratio 2.1 (1.2-2.2); Alkaline Phosphatase 100 U/L (46-116); Anion Gap 10 (7-16); Aspartate Amino Transferase 27 U/L (0-34); BUN/Creatinine Ratio 16 Ratio (12-20); Bilirubin,Total 0.3 mg/dL (0.3-1.2); Blood Urea Nitrogen 8 mg/dL (9-23); Calcium 9.1 mg/dL (8.3-10.6); Calcium (Corrected) 9.1 mg/dL (8.5-10.1); Carbon Dioxide 25.8 mMol/L (20.0-31.0); Chloride 108 mMol/L (98-107); Creatinine (Component) 0.5 mg/dL (0.6-1.3); Globulin 2.1 gm/dL (2.3-3.5); Glucose 93 mg/dL (74-106); Osmolality,Calculated 285 (275-295); Potassium 3.9 mMol/L (3.4-5.1); Sodium 144 mMol/L (136-145); Total Protein 6.5 gm/dL (5.7-8.2); eGFR > 60 See Note
[2025-02-02 10:43] LABS: CA 15-3 9.0 U/mL (<32.4)
--- NOTE | 2025-02-09 04:36 | CTCFLWUP_ITS ---
Patient: MARLYN ESTEVES : 1965 Page 8 of 9 FOLLOW UP NOTE DATE OF SERVICE: 02/03/2025 NAME: MARLYN ESTEVES ACCOUNT: [id number] : 1965 AGE: 59 INTERVAL HISTORY: Andrew, a patient with history of cancer, presented for follow-up after completing chemotherapy. Recent PET-CT, CT scan, and axillary lymph node ultrasound were all negative. An incidental lung nodule was discovered requiring 6-month follow-up imaging. The patient was scheduled for radiation therapy with Dr. Al, advised to continue calcium and vitamin D supplements, and recommended to purchase a posture brace. Port maintenance will continue with nursing. Follow-up appointments scheduled every 6 months for 5 years. Subjective: Andrew is a patient who has completed chemotherapy for cancer treatment and is now scheduled for radiation therapy with Dr. Al. The patient's last PET-CT scan, CT scan, and ultrasound of the axillary lymph node were all negative, indicating a positive response to treatment. The patient's overall health status appears to be improving following the completion of chemotherapy. There are no specific complaints or symptoms mentioned in the transcript. The patient is advised to continue taking calcium and vitamin D supplements as part of their ongoing care. An incidental lung nodule was discovered during previous imaging, which will be monitored with a follow-up scan in 6 months, scheduled for June. The patient is adhering to the prescribed treatment plan and will continue follow-up appointments every 6 months for the next 5 years with the current provider, in addition to seeing Dr. Al for radiation therapy. Medical History - Cancer (type not specified), treated with chemotherapy - Incidental lung nodule Medications and Supplements - Calcium - Vitamin D Objective: Laboratory, Imaging, and Diagnostic Test Results - PET-CT scan: Negative - CT scan: Negative - Ultrasound of axillary lymph node: Negative ONCOLOGY HISTORY: DIAGNOSIS: Malignant neoplasm of central portion of left female breast [ICD10] C50.112 DATE OF DIAGNOSIS: 10/16/2023 triple negative breast cancer STAGE/TNM: Stage IIa left breast triple negative breast S/p lumpectomy TREATMENT HISTORY: Care?Plan Start?Date Cycle Day Intent AC?4?cy?DD?Taxol?wkly?12?wks 03/26/2024 1 7 Curative?(adjuvant) AC?4?cy?DD?Taxol?wkly?12?wks 04/02/2024 2 7 Curative?(adjuvant) HISTORY OF PRESENT ILLNESS: Marlyn Esteves is a 59-year-old S[place] speaking female with history of diabetes has been having neck pain with radiation to the right upper extremity for last 1 year. She has the following work-up done so far. Ms. Esteves is referred to medical oncology to rule out malignancy. 09/28/2022: CT scan of the spine cervical spine without contrast 11/28/2022: MRI of the cervical spine with and without contrast 01/18/2023: Bilateral screening mammogram done at [facility] 03/22/2023:Bone scan 05/30/2023: CT scan of the chest abdomen and pelvis with IV contrast 07/03/2023: Bilateral screening mammograms 08/16/2023: PET/CT scan 08/22/2023: Bilateral breast ultrasound 10/16/2023: Stereotactic guided vacuum-assisted left breast biopsy with clip placement? 11/06/2023: [facility] cancer panel negative for BRCA 1and2 mutations 11/13/2023: Echocardiogram?LVEF 60-65%. 02/21/2024: Ms. Esteves had left breast lumpectomy and sentinel lymph node biopsy OTHER MEDICAL HISTORY/CONDITIONS: Diabetes Hyperlidiemia Tubal?ligation-1995 ?- FAMILY HISTORY: Patient?denies?family?cancer?history. SOCIAL HISTORY: Occupational?History:?Unemployed?- Education?Level:?Completed something less than 8th grade Marital?Status:? Tobacco?Use:?Denies ETOH?Use:?Denies Drug?Note:?Denues Social?History?Note:?Lives?alone [employer] HISTORY: Menarche?-?Age:?10 Menopause:?Age?51 :?5 Live?Births:?5 Age?1st?:?16 Gynecological?Note:?!?set?of?twins MEDICATIONS: 1. acetaminophen - 500 mg 1 tab As needed 2. cyclobenzaprine - 10 mg 1 tab Three times a day 3. gabapentin - 100 mg 1 Capsule Three times a day 4. meloxicam - 15 mg 1 tab Daily 5. ondansetron - 8 mg tab As needed 6. potassium chloride - 20 mEq 1 tab Daily 7. prochlorperazine - 5 mg 1 Suppository As needed 8. simvastatin - 20 mg 1 tab Daily 9. traMADol - 50 mg 1 tab Twice a Day 10. Vitamin D3 - 2,000 unit 1 Capsule Daily 11. Zithromax Z-Sarath - 250 mg 1 - 2 tab 2 tabs day one then one daily over 5 days Medications Last Reconciled by Joyce Lozoya MD on 02/03/2025 ALLERGIES: No Known Drug Allergies REVIEW OF SYSTEMS: A complete 14-point review of systems was performed and is negative except as noted in interval history. PHYSICAL EXAMINATION: VITAL SIGNS: Temperature?97.6, B/P?135/80, Oxygen?Saturation?98% Weight?120?lbs (Change?since?02/02/25:?-0.8?lbs) PAIN: 0 - No pain ECOG Performance Status: None EYE: Conjunctivae is white MOUTH: Oral cavity is moist no tenderness present in the cervical spine. Biopsy site on the left breast looks good. No signs of infection. CHEST: Clear to auscultation. No wheezes or rales audible. CARDIAC: Rhythm regular, no murmurs or gallops present. ABDOMEN: Soft. No hepatomegaly. No splenomegaly. EXTREMITIES: No pedal edema or cyanosis. LABORATORY DATA: I have personally reviewed and interpreted each of the patient?s relevant lab tests, abnormal findings are below: Date 11/19/24 02/02/25 ??WHITE?BLOOD?COUNT?(Thou/mm3) 2.4?L 4.5 ??RED?BLOOD?COUNT?(Miln/mm3) 2.86?L 3.59?L ??HEMOGLOBIN?(gm/dl) 9.5?L 11.3?L ??HEMATOCRIT?(%) 27.5?L 32.4?L ??PLATELET?COUNT?(Thou/mm3) 215 169 ??NEUTROPHILS?%,?AUTO?(%) 59 60 ??LYMPH?%,?AUTO?(%) 31 29 ??NEUTROPHILS,?AUTO?(Thou/mm3) 1.4?L 2.7 ??GLUCOSE,RANDOM?(mg/dL) 104 93 ??BLOOD?UREA?NITROGEN?(mg/dL) 7?L 8?L ??CREATININE?(mg/dL) 0.40?L 0.50?L ??SODIUM?(mmol/L) 138 144 ??POTASSIUM?(mmol/L) 3.9 3.9 ??CHLORIDE?(mmol/L) 105 108?H ??CrCl?(CandG)?(ml/min) 126.80 103.50 ??AST/SGOT?(Unit/L) 20 27 ??ALT/SGPT?(Unit/L) 20 29 ??ALKALINE?PHOSPHATASE?(Unit/L) 102 100 ??BILIRUBIN,?TOTAL?(mg/dL) 0.3 0.3 ??PROTEIN?TOTAL?(gm/dl) 6.4 6.5 ??ALBUMIN,?SERUM?(gm/dl) 4.3 4.4 ??GLOBULIN?(gm/dl) 2.1?L 2.1?L ??ALBUMIN/GLOBULIN?RATIO 2.0 2.1 ??CALCIUM,?SERUM?(mg/dL) 8.8 9.1 ??CALCIUM?SERUM?(CORRECTED)?(mg/dL) 8.8 9.1 ASSESSMENT/PLAN: 1. Stage IIa (pT2, snN 0, M0)moderately differentiated invasive ductal carcinoma of the left breast with lymphovascular invasion, Ki-67 75%. S/p lumpectomy and sentinel lymph node biopsy on 02/21/2020 Patient was initially diagnosed in October 2023 but got her surgery done in 03/04/2024 and did not receive neoadjuvant chemotherapy Patient was seen by me in April 2020 for and at that time patient complained of palpable left axillary lymph node. Patient was sent for left axillary lymph node biopsy. Left axillary lymph node biopsy is negative so Ms. Esteves remains stage II and chemotherapy was started. Initially,clinical stage Ia (cT1c, N0, M0) triple negative invasive ductal carcinoma, moderately differentiated of left breast, status post left breast stereotactic core biopsy (10/16/2023) BRCA 1and2 negative PET/CT scan negative for metastatic disease (08/16/2023. Started on chemotherapy with AC followed by paclitaxel Cancer (post-chemotherapy) Assessment: Patient has completed chemotherapy for cancer. Recent imaging studies, including PET-CT scan, CT scan, and ultrasound of axillary lymph nodes, were negative for disease. An incidental lung nodule was noted, which requires follow-up monitoring. Plan: - Follow up with Dr. Al for radiation therapy - Continue calcium and vitamin D supplementation - Monitor incidental lung nodule with repeat imaging in 6 months (June) - Follow up with oncology every 6 months for the next 5 years - Return to clinic in 6 months Port maintenance Assessment: Patient still has an indwelling port in place following chemotherapy completion. Plan: - Patient to see nurses for port flushing while port remains in place Poor posture Assessment: Patient presents with poor posture that requires correction to prevent worsening of condition. Plan: - Recommend purchase of body posture brace from [employer] (less expensive option acceptable) - Advise patient to wear brace consistently when out to avoid worsening condition Stress management Assessment: Patient appears stressed, which may potentially affect cancer growth. Plan: - Educate on stress management techniques: meditation, self-calming, grounding exercises - Encourage focus on completing chemotherapy, exercising, maintaining healthy diet, and avoiding weight gain 2. Advised to take nausea medicine regularly 3. sclerotic lesion involving the right lateral facet of C2 vertebral body. This is not biopsied.follow with ortho 4. Type 2 diabetes 5. Dense sclerotic lesion involving the right lateral facet of the C2 vertebral body and follows with orthopedic surgeon in [place] ORDERS: Order # Description [id number] CT Scan + Chest + With W/O Contrast RETURN TO CLINIC: I reviewed the diagnosis, prognosis, and recommended treatment/procedure options with the patient (and/or their legal wholesale representative), including the potential benefits, risks, side effects and alternative therapies. We also discussed the option of no treatment and the possibility of clinical trial participation, if applicable. All questions were addressed, and they demonstrated understanding. They provided informed consent to proceed with the proposed plan of care. BILLING AND COMPLIANCE: I reviewed external records from providers outside my specialty as summarized above. I spent a total of 50 minutes on this patient?s care on the day of their visit excluding time spent related to any billed procedures. This time includes time spent with the patient as well as time spent documenting in the medical record, reviewing patients records and tests, obtaining history, placing orders, communicating with other healthcare professionals, counseling the patient, family or caregiver, and/or care coordination for the diagnoses above. Electronically Signed by: {Object.Sanct_ID*PnP.NameFL@M}, {Object.Sanct_ID*PnP.Suffix@U} D: {Object.Sanct_Date} T: {Object.Sanct_Time} CC: PCP: Boogie Douglas Referring: Boogie Douglas This document was completed utilizing speech recognition software. Grammatical errors, random word insertions, pronoun errors, and incomplete sentences are an occasional consequence of this system due to software limitations, ambient noise, and hardware issues. Any formal questions or concerns about the content, text or information contained within the body of this dictation should be directly addressed to the provider for clarification.
== END 2025-02-12 23:59 | disposition home or self-care (01) ==
LOC: SCTC 12:22
PROVIDERS: PCP Family Medicine; Referring Provider Family Medicine; Visit Provider Internal Medicine Hematology & Oncology
DX: C50.112 Malignant neoplasm of central portion of left female breast (principal); Z17.421 Hormone receptor negative with human epidermal growth factor receptor 2 negative status; Z92.21 Personal history of antineoplastic chemotherapy; Z90.12 Acquired absence of left breast and nipple; R91.1 Solitary pulmonary nodule; R29.3 Abnormal posture; E11.9 Type 2 diabetes mellitus without complications; M89.9 Disorder of bone, unspecified
CPT/HCPCS: 36591; 80053; 85025; 86300; 99212; A4216; J1642; G0463

== ENCOUNTER → 2025-02-16 | Outpatient (CLI) | payer MEDICAID, SELFPAY ==
--- NOTE | 2025-02-16 10:12 | XR_ITS ---
Examination: Breast ultrasound, unilateral, left complete Date and time of exam: February 16, 2025 1025 hours INDICATIONS: CT examination December 10, 2024 left axillary seroma, history left breast lumpectomy February 2024 Technique: Real-time pederson scale ultrasonographic imaging performed left breast including all 4 quadrants as well as nipple retroareolar and axillary region. Findings: 6:00 cyst 4 x 4 millimeter Axillary fluid collection with internal echoes 2.3 x 1.3 x 2.1 cm IMPRESSION: Findings most consistent with left axillary seroma, clinical correlation advised
== END | disposition home or self-care (01) ==
PROVIDERS: Referring Provider Nurse Practitioner Family; Visit Provider Nurse Practitioner Family
DX: R92.8 Other abnormal and inconclusive findings on diagnostic imaging of breast (principal); C50.112 Malignant neoplasm of central portion of left female breast
CPT/HCPCS: 76641

== ENCOUNTER 2025-03-11 13:46 | Outpatient (RCR) | payer MEDICAID, SELFPAY ==
--- NOTE | 2025-03-03 13:59 | CTCFLWUP_ITS ---
[facility] [address] [place], [place] [address] FOLLOW-UP NOTE Date: 03/03/2025 MR#: [id number] Name: MARLYN ESTEVES : 1965 Dx: C50.112-related neoplasm of central portion of left breast Identification. Patient with stage IIa ([id number]) left breast CA triple negative partial mastectomy 02/21/2024. Patient completed chemotherapy in November under Dr. Jones's direction. Recently completed PET scan CT scan ultrasound or axilla lymph node were negative. Signatera was negative on 01/15/2025. Spoke to patient about completing the treatment course by radiation therapy to the residual tissue left breast. 3 weeks of whole breast radiation plus a boost 1 week to the tumor site; 5000 cGy total. Side effects explained consent signed. Electronically signed by: Haroldo Al M.D. 03/03/2025 1:57 PM
--- NOTE | 2025-03-03 14:00 | CTCTXPLN_ITS ---
[facility] [address] [place], [place] [address] Physician Clinical Treatment Planning Note Date of Service: 03/03/2025 Name: MARLYN ESTEVES : 1965 The patient has agreed to proceed with Radiation therapy. Tests and supporting medical records were interpreted to assist in defining the tumor location and extent of disease. Further imaging will be necessary to contour and delineate the volume to which the XRT will be provided. A. Treatment Intent: Left breast B. Modality: Mixed mode C. Requested Technique: 3D D. Treatment Site: Left breast E. Critical structures to be contoured on plan: F. In order to accomplish this plan, I am ordering/Prescribing the followin. Simulations (s) will be performed to accomplish a reproducible treatment position, to determine optimal treatment portals/beam arrangements, to design beam modifying devices and verify treatment portals on patient prior to the commencement of Radiation Therapy. Left breast 2. Devices; for immobilization and beam shaping: Vac-Neil 3. CT Guidance for placement of XRT brewer Scan area: 4. Portal images Frequency: 5. Invivo transit dose measurement once per week on all VMAT patients. 6. Special Physics Consult Requested for: 7. Other requests: Special procedure chemoradiation G. Dose Objectives: Curative Electronically signed by: Haroldo Al M.D. 03/03/2025 1:57 PM
--- NOTE | 2025-03-03 14:02 | CTCTXPLNST_ITS ---
Radiation Oncology Treatment Planning Sheet Name: MARLYN ESTEVES MR#: [id number] : 1965 Dx: M89.9 Disorder of bone, unspecified Date of Service: 03/03/2025 Account #: ?? Pt Treatment Intent: curative palliative other: Stage: Procedure CPT # Ordered Spec. Procedure 60733 1 Gutiérrez Complex (set-up) 38922 L breast/E boost 2 Gutiérrez Simple 07400 1 IMRT Plan 90094 MLC Devices VMAT 26511 Gutiérrez 3 D 49886 1 TRTMT dev Complex 45442 [place]/2F/E boost 4 TRTMT dev simple 88380 1 Basic Tommie 92538 5 Special Dosimetry 95786 Spec Physics 11001 Port Films 41552 3 SRS Cranial/1FX 95448 SBR 5 FX or Less /ex: 5 = 5 fx 25075 IMRT Simple 40220 IMRT Complex 08579 IGRT 29463 Rad del Boostable 12-23 61388 Rad del Boostable 06-03 12201 4990 20 Cont Med Physics 55681 5 Treatment Planning 60603 1` Weekly Evaluation 70591 4 Rad del com 20 mev 21326 Special Port Plan 92152 TRTMT dev inter 11657 Isodose Complex 06974 Isodose simple 90978 Resp Motion Mgmt Simulation 18011 Placement of Fiducial Markers 56956 Electronically Signed By: Haroldo Al MD, WILEYR 03/03/2025 2:00 PM
== END 2025-03-15 23:59 | disposition home or self-care (01) ==
LOC: SCTC 13:46
PROVIDERS: PCP Family Medicine; Referring Provider Radiology Therapeutic Radiology; Visit Provider Radiology Therapeutic Radiology
DX: C50.112 Malignant neoplasm of central portion of left female breast (principal); Z17.421 Hormone receptor negative with human epidermal growth factor receptor 2 negative status; Z90.12 Acquired absence of left breast and nipple
CPT/HCPCS: 77014; 77290; 77334; 77470; 99213; G0463

== ENCOUNTER 2025-04-14 12:52 | Outpatient (RCR) | payer MEDICAID, SELFPAY | END 2025-04-14 23:59 | disposition home or self-care (01) | LOC: SCTC 12:52 | PROVIDERS: PCP Family Medicine; Referring Provider Family Medicine; Visit Provider Radiology Therapeutic Radiology | DX: Z51.0 Encounter for antineoplastic radiation therapy (principal); C50.112 Malignant neoplasm of central portion of left female breast; Z17.421 Hormone receptor negative with human epidermal growth factor receptor 2 negative status; Z90.12 Acquired absence of left breast and nipple | CPT/HCPCS: 77280; 77290; 77295; 77300; 77332; 77334; 77336; 77412; 77417 ==

== ENCOUNTER → 2025-04-28 | Outpatient (CLI) | payer MEDICAID, SELFPAY ==
--- NOTE | 2025-04-28 10:30 | ECHO_ITS ---
Transthoracic Echo Report Ht (in): 58 Wt (lb): 100 Exam Location: Echo Lab Status: Preadmit Technical Translator: Olive Agudelo Indications: Procedure Performed: BP: 139 / 86 HR: MEASUREMENTS (Male / Female) Normal Values 2D ECHO LV Diastolic Diameter PLAX 4.0 cm 4.2 - 5.9 / 3.9 - 5.3 cm LV Systolic Diameter PLAX 2.5 cm IVS Diastolic Thickness 0.7 cm 0.6 - 1.0 / 0.6 - 0.9 cm LVPW Diastolic Thickness 1.0 cm 0.6 - 1.0 / 0.6 - 0.9 cm LV Relative Wall Thickness 0.4 LVOT Diameter 1.8 cm LA Volume Index 27.2 cm?/m? 16 - 28 cm?/m? Ascending Aorta Diameter 2.4 cm M-MODE AV Cusp Separation MM 1.4 cm DOPPLER AV Peak Velocity 122.0 cm/s AV Peak Gradient 6.0 mmHg AV Mean Gradient 4.0 mmHg AV Velocity Time Integral 23.5 cm LVOT Peak Velocity 73.1 cm/s LVOT Peak Gradient 2.1 mmHg LVOT Velocity Time Integral 14.7 cm AV Area Cont Eq vti 1.6 cm? AV Area Cont Eq pk 1.5 cm? MV Area PHT 7.1 cm? Mitral E Point Velocity 46.6 cm/s Mitral A Point Velocity 66.5 cm/s Mitral E to A Ratio 0.7 LV E' Lateral Velocity 5.7 cm/s Mitral E to LV E' Lateral Ratio 8.2 LV E' Septal Velocity 4.3 cm/s Mitral E to LV E' Septal Ratio 10.7 TR Peak Velocity 178.7 cm/s TR Peak Gradient 12.8 mmHg PV Peak Velocity 89.6 cm/s PV Peak Gradient 3.2 mmHg FINDINGS Left Ventricle Normal left ventricular size, wall thickness, systolic function with no obvious regional wall motion abnormalities. There is grade I diastolic dysfunction of the left ventricle (impaired relaxation pattern). The ejection fraction is visually estimated at 65%. Right Ventricle The right ventricle is normal in size and systolic function. Left Atrium The left atrium is normal by two-dimensional, color flow and Doppler imaging with no structural abnormalities, no thrombus formation present. Right Atrium The right atrium is normal by two-dimensional imaging, color flow and Doppler imaging with no structural abnormalities, no thrombus formation present. Atrial Septum The interatrial septum appears normal with no evidence of a shunt. Aorta The aorta is normal by two-dimensional, color flow and Doppler interrogation. Mitral Valve The mitral valve is normal by two-dimensional, color flow and Doppler interrogation. Trace mitral regurgitation. Aortic Valve The aortic valve is trileaflet and normal by two-dimensional, color flow and Doppler interrogation. There is no significant aortic valve regurgitation. Tricuspid Valve The tricuspid valve is normal by two-dimensional, color flow and Doppler interrogation. There is trace tricuspid valve regurgitation. Pulmonic Valve The pulmonic valve is not well visualized. There is no significant pulmonic valve regurgitation. Vessels The pulmonary artery appears normal. The inferior vena cava pulmonary and hepatic veins appear normal. Pericardium The pericardium is normal by two-dimensional imaging. There is no significant pericardial effusion. CONCLUSIONS Indication: Disorder of bone, unspecified. Normal left ventricular size and function. Grade I diastolic dysfunction. Estimated EF 65%. Normal right ventricular size and function. Trace mitral and trace tricuspid regurgitation Maria R Kaminski (Electronically Signed) Final Date: 30 April 2025 17:13
== END | disposition home or self-care (01) ==
LOC: SDIM 10:25
PROVIDERS: PCP Family Medicine; Referring Provider Internal Medicine Hematology & Oncology; Visit Provider Internal Medicine Hematology & Oncology
DX: I08.1 Rheumatic disorders of both mitral and tricuspid valves (principal); I50.30 Unspecified diastolic (congestive) heart failure
CPT/HCPCS: 93306

== ENCOUNTER 2025-05-06 14:49 | Outpatient (RCR) | payer MEDICAID, SELFPAY | END 2025-05-15 23:59 | disposition home or self-care (01) | LOC: SCTC 14:49 | PROVIDERS: PCP Family Medicine; Referring Provider Family Medicine; Visit Provider Radiology Therapeutic Radiology | DX: Z51.0 Encounter for antineoplastic radiation therapy (principal); C50.112 Malignant neoplasm of central portion of left female breast; Z17.421 Hormone receptor negative with human epidermal growth factor receptor 2 negative status; Z92.21 Personal history of antineoplastic chemotherapy | CPT/HCPCS: 36591; 77412; 96523; 99212; A4216; J1642; G0463 ==

== ENCOUNTER → 2025-06-29 | Outpatient (CLI) | payer MEDICAID, SELFPAY ==
[2025-06-24 12:02] LABS: Basophils # (Auto) 0.0 Thou/mm3 (0.0-0.2); Basophils % (Auto) 0 % (0-2.5); Eosinophils # (Auto) 0.1 Thou/mm3 (0.0-0.5); Eosinophils % (Auto) 2 % (0-10); Hematocrit 36.5 % (36.0-46.0); Hemoglobin 12.4 g/dL (12.0-16.0); Immature Granulocytes Auto 0.02 Thou/mm3 (0.00-0.00); Lymphocytes # (Auto) 1.1 Thou/mm3 (1.0-4.8); Lymphocytes % (Auto) 24 % (10-50); Mean Corpuscular HGB Conc 34.0 g/dl (31.0-37.0); Mean Corpuscular Hemoglobin 32.0 pg (25.0-35.0); Mean Corpuscular Volume 94 fL (80-100); Monocytes # (Auto) 0.4 Thou/mm3 (0.0-0.8); Monocytes % (Auto) 9 % (0-12); Neutrophils # (Auto) 2.9 Thou/mm3 (1.8-7.7); Neutrophils % (Auto) 65 % (37-80); Nucleated Red Blood Cell # 0.00 Thou/mm3 (0.00-0.00); Nucleated Red Blood Cell % 0 /100 WBC (0); Platelet Count 200 Thou/mm3 (140-440); RDW Standard Deviation 45.5 fL (36.4-46.3); Red Blood Count 3.88 Miln/mm3 (4.00-5.20); White Blood Count 4.5 Thou/mm3 (3.6-11.0)
[2025-06-24 12:14] LABS: Alanine Aminotransferase 32 U/L (10-49); Albumin, Serum 5.0 gm/dL (3.4-4.8); Albumin/Globulin Ratio 1.9 (1.2-2.2); Alkaline Phosphatase 113 U/L (46-116); Anion Gap 10 (7-16); Aspartate Amino Transferase 26 U/L (0-34); BUN/Creatinine Ratio 16 Ratio (12-20); Bilirubin,Total 0.2 mg/dL (0.3-1.2); Blood Urea Nitrogen 8 mg/dL (9-23); Calcium 9.5 mg/dL (8.3-10.6); Calcium (Corrected) 9.5 mg/dL (8.5-10.1); Carbon Dioxide 27.0 mMol/L (20.0-31.0); Chloride 106 mMol/L (98-107); Creatinine (Component) 0.5 mg/dL (0.6-1.3); Globulin 2.6 gm/dL (2.3-3.5); Glucose 92 mg/dL (74-106); Osmolality,Calculated 283 (275-295); Potassium 4.4 mMol/L (3.4-5.1); Sodium 143 mMol/L (136-145); Total Protein 7.6 gm/dL (5.7-8.2); eGFR > 60 See Note
--- NOTE | 2025-06-29 11:00 | XR_ITS ---
Examination: CT chest with intravenous contrast CT chest without intravenous contrast 2-D reconstructions Date and time of exam: June 29, 2025, 1129 hours, comparison December 10, 2024 INDICATIONS: Diagnosis malignant neoplasm left female breast, CT chest December 10, 2024 29 mm seroma left axilla, for pulmonary nodules in the right upper lobe measuring 2 to 4 mm in the right upper lobe CTDI:vol (mGy) 20.8 DLP: (mGycm) 687 Technique: Multiple axial sections of the thorax have been obtained. 3 mm slice thickness, from the hemidiaphragms to above the apices of the lungs. Mediastinal and lung density settings have been obtained. Intravenous contrast administered 60 cc Isovue-370. Noncontrast images have also been obtained. 2-D sagittal coronal images obtained. Low dose protocols were performed. One or more of the following dose reduction techniques were used; automated exposure control, adjustment of the mA and/or KV according to patient size, use of iterative reconstruction technique. Findings: Stable skin thickening left breast The left axillary seroma is no longer identified, left axillary surgical clips No interval breast mass No thoracic aortic aneurysmal dilatation, pulmonary artery segments are not enlarged, no pulmonary artery emboli No interval mediastinal lymphadenopathy Stable subcentimeter right pulmonary nodules, no new nodules No interval pneumonia or pulmonary edema Fatty infiltration throughout the liver no focal liver or splenic lesions No gallstones No pancreatic or adrenal mass Kidneys partially visualized no hydronephrosis Moderate osteopenia IMPRESSION: The left axillary seroma noted on the CT chest December 10, 2024 is no longer identified No interval breast mass No interval mediastinal lymphadenopathy Stable subcentimeter pulmonary nodules right lung, no new pulmonary nodules
== END | disposition home or self-care (01) ==
LOC: SCAT 10:35
PROVIDERS: PCP Family Medicine; Referring Provider Internal Medicine Hematology & Oncology; Visit Provider Internal Medicine Hematology & Oncology
DX: R91.8 Other nonspecific abnormal finding of lung field (principal); N64.89 Other specified disorders of breast; M89.9 Disorder of bone, unspecified; S14.122A Central cord syndrome at C2 level of cervical spinal cord, initial encounter; X58.XXXA Exposure to other specified factors, initial encounter; C50.112 Malignant neoplasm of central portion of left female breast
CPT/HCPCS: 36415; 71270; 80053; 85025; A4649; Q9967